=== PATIENT | female | born 1955 | race Caucasian/White ===

== ENCOUNTER 2016-05-07 16:37 | Emergency (ER) | payer BC ==
--- NOTE | 2016-05-07 16:55 | ED ---
General Adult HPI - General Chief complaint: Chest Pain Stated complaint: left arm numbness Source: patient, RN notes reviewed, old records reviewed Mode of arrival: ambulatory Limitations: no limitations - History of Present Illness Initial comments: This is a 7-year-old female yesterday with chest pain. Patient has anterior chest pain. Her chest radiating to left shoulder and left arm and jaw. She also was of shortness of breath. Patient has no recent fever cough or congestion, no history of heart attack, no history of hypotension or costovertebral diabetes nonsmoker. Patient states she is currently having this chest pain as well. - Related Data Home Medications Medication Instructions Recorded Confirmed Naproxen Sodium [Aleve] 220 mg PO BID PRN 06/03/15 05/07/16 Cholecalciferol (Vitamin D3) 10,000 unit PO DAILY 05/07/16 05/07/16 [Vitamin D3] Multivitamins, Thera [Multivitamin 1 tab PO DAILY 05/07/16 05/07/16 (formulary)] Allergies Allergy/AdvReac Type Severity Reaction Status Date / Time morphine AdvReac Severe Nausea & Verified 05/07/16 18:16 Vomiting Review of Systems ROS Statement: Those systems with pertinent positive or pertinent negative responses have been documented in the HPI. ROS Other: All systems not noted in ROS Statement are negative. 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, partial rt knee replacement, left achillies repaired and lengthened , moles removed, 4-15-16 rt achilles tendon repair Past Psychological History: No Psychological Hx Reported Smoking Status: Never smoker Past Alcohol Use History: Occasional Past Drug Use History: Marijuana Additional Drug Use History / Comment(s): last used 3 weeks ago - Past Family History Father Additional Family Medical History / Comment(s): melanoma Mother Additional Family Medical History / Comment(s): macular degeneration General Exam Limitations: no limitations General appearance: alert, in no apparent distress Head exam: Present: atraumatic, normocephalic, normal inspection Eye exam: Present: normal appearance, PERRL, EOMI. Absent: scleral icterus, conjunctival injection, periorbital swelling ENT exam: Present: normal exam, mucous membranes moist Neck exam: Present: normal inspection. Absent: tenderness, meningismus, lymphadenopathy Respiratory exam: Present: normal lung sounds bilaterally. Absent: respiratory distress, wheezes, rales, rhonchi, stridor Cardiovascular Exam: Present: regular rate, normal rhythm, normal heart sounds. Absent: systolic murmur, diastolic murmur, rubs, gallop, clicks GI/Abdominal exam: Present: soft, normal bowel sounds. Absent: distended, tenderness, guarding, rebound, rigid Extremities exam: Present: normal inspection, full ROM, normal capillary refill. Absent: tenderness, pedal edema, joint swelling, calf tenderness Back exam: Present: normal inspection Neurological exam: Present: alert, oriented X3, CN II-XII intact Psychiatric exam: Present: normal affect, normal mood Skin exam: Present: warm, dry, intact, normal color. Absent: rash Course Vital Signs 05/07/16 05/07/16 05/07/16 16:48 17:52 18:25 Temperature 98.0 F 97 F L Pulse Rate 82 82 74 Respiratory 16 20 20 Rate Blood Pressure 145/79 128/72 138/77 O2 Sat by Pulse 98 100 99 Oximetry - Reevaluation(s) Reevaluation #1: Patient states since arrival to emergency room she is without pain, patient has no chronic risk factors, patient cursive follow up with family doctor, does admit to being a daily drinker, concerned overage and duration of symptoms EKG Findings - EKG Comments: EKG Findings:: EKG shows normal sinus rhythm rate of 82, MS 1:30, QRS 80, QTC 464 Medical Decision Making - Medical Decision Making 61 female ear for evaluation of chest pain, more likely epigastric pain radiating upper back, burning pain worse after eating at times. Patient is well cardiac risk factors aside from age, patient concern for heart although does admit to being daily drinker, patient's again without pain in the emergency room, EKG and troponin are negative the patient can be discharged home - Lab Data Result diagrams: 05/07/16 17:20 05/07/16 17:20 Lab Results 05/07/16 05/07/16 05/07/16 Range/Units 17:20 17:20 17:20 WBC 7.1 (3.8-10.6) k/uL RBC 4.82 (3.80-5.40) m/uL Hgb 14.3 (11.4-16.0) gm/dL Hct 43.9 (34.0-46.0) % MCV 91.2 (80.0-100.0) fL MCH 29.6 (25.0-35.0) pg MCHC 32.5 (31.0-37.0) g/dL RDW 12.7 (11.5-15.5) % Plt Count 349 (150-450) k/uL Neutrophils % 58 % Lymphocytes % 31 % Monocytes % 6 % Eosinophils % 1 % Basophils % 1 % Neutrophils # 4.1 (1.3-7.7) k/uL Lymphocytes # 2.2 (1.0-4.8) k/uL Monocytes # 0.4 (0-1.0) k/uL Eosinophils # 0.1 (0-0.7) k/uL Basophils # 0.0 (0-0.2) k/uL PT (9.0-12.0) sec INR (<1.1) APTT (22.0-30.0) sec Sodium 143 (137-145) mmol/L Potassium 4.3 (3.5-5.1) mmol/L Chloride 106 (98-107) mmol/L Carbon Dioxide 26 (22-30) mmol/L Anion Gap 11 mmol/L BUN 13 (7-17) mg/dL Creatinine 0.70 (0.52-1.04) mg/dL Est GFR (MDRD) Af Amer >60 (>60 ml/min/1.73 sqM) Est GFR (MDRD) Non-Af >60 (>60 ml/min/1.73 sqM) Glucose 108 H (74-99) mg/dL Calcium 9.9 (8.4-10.2) mg/dL Magnesium 2.2 (1.6-2.3) mg/dL Total Bilirubin 0.7 (0.2-1.3) mg/dL AST 51 H (14-36) U/L ALT 81 H (9-52) U/L Alkaline Phosphatase 65 (38-126) U/L Total Creatine Kinase 62 (30-135) U/L CK-MB (CK-2) 0.4 (0.0-2.4) ng/mL CK-MB (CK-2) Rel Index 0.6 Troponin I <0.012 (0.000-0.034) ng/mL Total Protein 7.8 (6.3-8.2) g/dL Albumin 4.6 (3.5-5.0) g/dL Lipase 320 H (23-300) U/L Urine Color Urine Appearance (Clear) Urine pH (5.0-8.0) Ur Specific [place] (1.001-1.035) Urine Protein (Negative) Urine Glucose (UA) (Negative) Urine Ketones (Negative) Urine Blood (Negative) Urine Nitrite (Negative) Urine Bilirubin (Negative) Urine Urobilinogen (<2.0) mg/dL Ur Leukocyte Esterase (Negative) Urine RBC (0-5) /hpf Urine WBC (0-5) /hpf Ur Squamous Epith Cells (0-4) /hpf Urine Bacteria (None) /hpf Urine Mucus (None) /hpf 05/07/16 05/07/16 Range/Units 17:20 18:20 WBC (3.8-10.6) k/uL RBC (3.80-5.40) m/uL Hgb (11.4-16.0) gm/dL Hct (34.0-46.0) % MCV (80.0-100.0) fL MCH (25.0-35.0) pg MCHC (31.0-37.0) g/dL RDW (11.5-15.5) % Plt Count (150-450) k/uL Neutrophils % % Lymphocytes % % Monocytes % % Eosinophils % % Basophils % % Neutrophils # (1.3-7.7) k/uL Lymphocytes # (1.0-4.8) k/uL Monocytes # (0-1.0) k/uL Eosinophils # (0-0.7) k/uL Basophils # (0-0.2) k/uL PT 10.2 (9.0-12.0) sec INR 1.0 (<1.1) APTT 22.7 (22.0-30.0) sec Sodium (137-145) mmol/L Potassium (3.5-5.1) mmol/L Chloride (98-107) mmol/L Carbon Dioxide (22-30) mmol/L Anion Gap mmol/L BUN (7-17) mg/dL Creatinine (0.52-1.04) mg/dL Est GFR (MDRD) Af Amer (>60 ml/min/1.73 sqM) Est GFR (MDRD) Non-Af (>60 ml/min/1.73 sqM) Glucose (74-99) mg/dL Calcium (8.4-10.2) mg/dL Magnesium (1.6-2.3) mg/dL Total Bilirubin (0.2-1.3) mg/dL AST (14-36) U/L ALT (9-52) U/L Alkaline Phosphatase (38-126) U/L Total Creatine Kinase (30-135) U/L CK-MB (CK-2) (0.0-2.4) ng/mL CK-MB (CK-2) Rel Index Troponin I (0.000-0.034) ng/mL Total Protein (6.3-8.2) g/dL Albumin (3.5-5.0) g/dL Lipase (23-300) U/L Urine Color Yellow Urine Appearance Clear (Clear) Urine pH 5.5 (5.0-8.0) Ur Specific [place] 1.012 (1.001-1.035) Urine Protein Negative (Negative) Urine Glucose (UA) Negative (Negative) Urine Ketones Negative (Negative) Urine Blood Trace H (Negative) Urine Nitrite Negative (Negative) Urine Bilirubin Negative (Negative) Urine Urobilinogen <2.0 (<2.0) mg/dL Ur Leukocyte Esterase Negative (Negative) Urine RBC 1 (0-5) /hpf Urine WBC <1 (0-5) /hpf Ur Squamous Epith Cells 1 (0-4) /hpf Urine Bacteria Rare H (None) /hpf Urine Mucus Rare H (None) /hpf - Radiology Data Radiology results: report reviewed (Chest x-ray is negative for acute disease), image reviewed Disposition Clinical Impression: Acute pancreatitis Disposition: HOME SELF-CARE Condition: Good Instructions: Pancreatitis (ED) Referrals: Payam Durant DO [Primary Care Provider] - 1-2 days
[2016-05-07 17:25] LABS: Basophils % (A) 1 %; CH 30.1; CHCM 33.1; Eosinophils # (A) 0.1 k/uL (0-0.7); Eosinophils % (A) 1 %; HCT 43.9 % (34.0-46.0); HDW 2.35; HGB 14.3 gm/dL (11.4-16.0); Luc # (Auto) 0.25; Luc % (Auto) 4; Lymphocytes # (A) 2.2 k/uL (1.0-4.8); Lymphocytes % (A) 31 %; MCH 29.6 pg (25.0-35.0); MCHC 32.5 g/dL (31.0-37.0); MCV 91.2 fL (80.0-100.0); Mean Platelet Volume 6.4; Monocytes # (A) 0.4 k/uL (0-1.0); Monocytes % (A) 6 %; Neutrophils # (A) 4.1 k/uL (1.3-7.7); Neutrophils % (A) 58 %; RBC 4.82 m/uL (3.80-5.40); RDW 12.7 % (11.5-15.5); WBC 7.1 k/uL (3.8-10.6); WBC (Perox) 7.12
[2016-05-07 17:42] LABS: Partial Thromboplastin Time 22.7 sec (22.0-30.0); Prothrombin Time 10.2 sec (9.0-12.0)
[2016-05-07 17:43] LABS: Creatine Kinase 62 U/L (30-135)
[2016-05-07 17:45] LABS: ALT 81 U/L (9-52); AST 51 U/L (14-36); Alkaline Phosphatase 65 U/L (38-126); Anion Gap 11 mmol/L; Blood Urea Nitrogen 13 mg/dL (7-17); Calcium 9.9 mg/dL (8.4-10.2); Carbon Dioxide 26 mmol/L (22-30); Chloride 106 mmol/L (98-107); Glucose 108 mg/dL (74-99); Magnesium 2.2 mg/dL (1.6-2.3); Non-African American GFR(MDRD) >60 (>60 ml/min/1.73 sqM); Potassium 4.3 mmol/L (3.5-5.1); Sodium 143 mmol/L (137-145); Total Bilirubin 0.7 mg/dL (0.2-1.3); Total Protein 7.8 g/dL (6.3-8.2)
[2016-05-07 17:56] LABS: Creatine Kinase MB 0.4 ng/mL (0.0-2.4); Troponin I <0.012 ng/mL (0.000-0.034)
--- NOTE | 2016-05-07 18:25 | XR ---
EXAMINATION TYPE: XR chest 2V DATE OF EXAM: 05/07/2016 5:35 PM COMPARISON: Prior chest x-ray November HISTORY: Chest pain TECHNIQUE: Frontal and lateral views of the chest are obtained. FINDINGS: There is no focal air space opacity, pleural effusion, or pneumothorax seen. The cardiac silhouette size is within normal limits. There are overlying cardiac leads. The osseous structures are intact. IMPRESSION: No acute cardiopulmonary process.
[2016-05-07 18:26] VITALS: BP 138/77; PULSE 74; RESP 20; TEMP 97
[2016-05-07 18:50] LABS: Appearance,Urine Clear (Clear); Bacteria,Urine Rare /hpf; Bilirubin,Urine Negative (Negative); Glucose,Urine (UA) Negative (Negative); Ketones,Urine Negative (Negative); Leukocyte Esterase,Urine Negative (Negative); Mucus,Urine Rare /hpf; Nitrite,Urine Negative (Negative); PH, Urine 5.5 (5.0-8.0); Particle Count 1225; Protein,Urine Negative (Negative); RBC,Urine 1 /hpf (0-5); Specific Gravity,Urine 1.012 (1.001-1.035); Squamous Epithelial Cell,Urine 1 /hpf (0-4); UA Billing (MACRO vs. MICRO) MICRO; Urobilinogen,Urine <2.0 mg/dL (<2.0); WBC,Urine <1 /hpf (0-5)
== END 2016-05-07 18:38 | disposition home or self-care (01) ==
LOC: EC 16:37
DX: K85.90 Acute pancreatitis without necrosis or infection, unspecified (principal); Z79.899 Other long term (current) drug therapy; Z88.5 Allergy status to narcotic agent
CPT/HCPCS: 36415; 71020; 80053; 81001; 82550; 82553; 83690; 83735; 84484; 85025; 85610; 85730; 87086; 93005; 99285

== ENCOUNTER 2016-05-10 17:47 | Emergency (ER) | payer BC ==
[2016-05-10] MEDS ORDERED: SODIUM CHLORIDE 0.9% 1,000 ML IV STA (18:31)
--- NOTE | 2016-05-10 18:35 | ED ---
Abdominal Pain HPI - General Chief Complaint: Abdominal Pain Stated Complaint: abd pain Time Seen by Provider: 05/10/16 18:08 Source: patient, RN notes reviewed Mode of arrival: wheelchair Limitations: no limitations - History of Present Illness Initial Comments: Patient is a 61-year-old female presents to the emergency room for evaluation of left upper quadrant pain. Patient states she was here Monday for the same complaint. Patient states she was diagnosed with mild pancreatitis. Patient states she followed up with her primary care provider and ultrasound was ordered. Patient states her ultrasound is scheduled for . Patient states pain is not getting any better. Patient states she is having constant pain in her left upper quadrant. Patient states the pain radiates to her back. Patient states pain was worse while making a bowel movement. Patient states she began having chest pain while having a bowel movement. Patient states she is feeling nauseous. Patient denies any vomiting. Patient also states she's been having frequency in urination. Patient also states that having burning while urinating. Patient states the frequency has increased since Monday. Patient denies history of kidney stones. Patient's denies blood in urine. Patient states she has a history of appendectomy and tubal ligation. Patient denies any other abdominal surgeries. Patient denies fevers, chills, weakness, headache, dizziness, shortness of breath. Patient states she had a colonoscopy done about 4-5 years ago with no abnormal findings. - Related Data Home Medications Medication Instructions Recorded Confirmed Naproxen Sodium [Aleve] 220 mg PO BID PRN 06/03/15 05/10/16 Cholecalciferol (Vitamin D3) 10,000 unit PO DAILY 05/07/16 05/10/16 [Vitamin D3] Multivitamins, Thera [Multivitamin 1 tab PO DAILY 05/07/16 05/10/16 (formulary)] Previous Rx's Medication Instructions Recorded Dicyclomine [Bentyl] 10 mg PO TID PRN #12 capsule 05/10/16 Famotidine [Pepcid] 20 mg PO DAILY PRN #10 tablet 05/10/16 Ondansetron Odt [Zofran Odt] 4 mg PO Q8HR PRN #12 tab 05/10/16 Allergies Allergy/AdvReac Type Severity Reaction Status Date / Time morphine AdvReac Severe Nausea & Verified 05/10/16 19:13 Vomiting Review of Systems ROS Statement: Those systems with pertinent positive or pertinent negative responses have been documented in the HPI. ROS Other: All systems not noted in ROS Statement are negative. 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 Limitations: no limitations General appearance: alert, in no apparent distress Head exam: Present: atraumatic, normocephalic, normal inspection Eye exam: Present: normal appearance ENT exam: Present: normal exam Neck exam: Present: normal inspection Respiratory exam: Present: normal lung sounds bilaterally. Absent: respiratory distress Cardiovascular Exam: Present: regular rate, normal rhythm, normal heart sounds GI/Abdominal exam: Present: soft, tenderness (LUQ), normal bowel sounds. Absent : distended, guarding, rebound, rigid Extremities exam: Present: normal inspection Back exam: Present: normal inspection Neurological exam: Present: alert, oriented X3, CN II-XII intact, normal gait Psychiatric exam: Present: normal affect, normal mood Skin exam: Present: warm, dry, intact, normal color. Absent: rash Course Vital Signs 05/10/16 05/10/16 05/10/16 17:56 19:24 20:58 Temperature 98.6 F 98.3 F 97.9 F Pulse Rate 107 H 91 76 Respiratory 20 18 18 Rate Blood Pressure 162/70 142/85 138/66 O2 Sat by Pulse 97 98 97 Oximetry 05/10/16 22:30 Temperature 97.8 F Pulse Rate 66 Respiratory 18 Rate Blood Pressure 130/70 O2 Sat by Pulse 99 Oximetry Medical Decision Making - Medical Decision Making Patient is 61-year-old female presents to the emergency room for evaluation of left upper quadrant pain. Labs show findings. No signs of pancreatitis noted. Abdominal ultrasound showed no acute findings. CT abdomen/pelvis: Mild fatty infiltration of the liver. Small umbilical hernia. No sign of acute abdomen and pelvis. Results discussed with patient. Patient states she is feeling better after medications given. Will send patient home with Dameon and advised her to follow-up with GI specialist for further evaluation. Patient states he understands everything that was discussed with her. Return parameters discussed. Case discussed with Dr. Sampson. - Lab Data Result diagrams: 05/10/16 18:56 05/10/16 18:56 Lab Results 05/10/16 05/10/16 05/10/16 Range/Units 18:56 18:56 18:56 WBC 10.1 (3.8-10.6) k/uL RBC 5.11 (3.80-5.40) m/uL Hgb 14.9 (11.4-16.0) gm/dL Hct 45.4 (34.0-46.0) % MCV 88.7 D (80.0-100.0) fL MCH 29.2 (25.0-35.0) pg MCHC 32.9 (31.0-37.0) g/dL RDW 12.6 (11.5-15.5) % Plt Count 414 (150-450) k/uL Neutrophils % 66 % Lymphocytes % 26 % Monocytes % 5 % Eosinophils % 0 % Basophils % 1 % Neutrophils # 6.6 (1.3-7.7) k/uL Lymphocytes # 2.7 (1.0-4.8) k/uL Monocytes # 0.5 (0-1.0) k/uL Eosinophils # 0.0 (0-0.7) k/uL Basophils # 0.1 (0-0.2) k/uL PT (9.0-12.0) sec INR (<1.1) APTT (22.0-30.0) sec Sodium 145 (137-145) mmol/L Potassium 4.3 (3.5-5.1) mmol/L Chloride 104 (98-107) mmol/L Carbon Dioxide 25 (22-30) mmol/L Anion Gap 16 mmol/L BUN 10 (7-17) mg/dL Creatinine 0.70 (0.52-1.04) mg/dL Est GFR (MDRD) Af Amer >60 (>60 ml/min/1.73 sqM) Est GFR (MDRD) Non-Af >60 (>60 ml/min/1.73 sqM) Glucose 114 H (74-99) mg/dL Calcium 10.9 H (8.4-10.2) mg/dL Magnesium 1.7 (1.6-2.3) mg/dL Total Bilirubin 0.8 (0.2-1.3) mg/dL AST 38 H (14-36) U/L ALT 71 H (9-52) U/L Alkaline Phosphatase 75 (38-126) U/L Total Creatine Kinase 38 (30-135) U/L CK-MB (CK-2) <0.2 (0.0-2.4) ng/mL CK-MB (CK-2) Rel Index Troponin I <0.012 (0.000-0.034) ng/mL Total Protein 8.1 (6.3-8.2) g/dL Albumin 4.8 (3.5-5.0) g/dL Amylase 56 (30-110) U/L Lipase 211 (23-300) U/L Urine Color Urine Appearance (Clear) Urine pH (5.0-8.0) Ur Specific [place] (1.001-1.035) Urine Protein (Negative) Urine Glucose (UA) (Negative) Urine Ketones (Negative) Urine Blood (Negative) Urine Nitrite (Negative) Urine Bilirubin (Negative) Urine Urobilinogen (<2.0) mg/dL Ur Leukocyte Esterase (Negative) Urine RBC (0-5) /hpf Urine WBC (0-5) /hpf Ur Squamous Epith Cells (0-4) /hpf Amorphous Sediment (None) /hpf Urine Bacteria (None) /hpf Urine Mucus (None) /hpf 05/10/16 05/10/16 Range/Units 18:56 19:20 WBC (3.8-10.6) k/uL RBC (3.80-5.40) m/uL Hgb (11.4-16.0) gm/dL Hct (34.0-46.0) % MCV (80.0-100.0) fL MCH (25.0-35.0) pg MCHC (31.0-37.0) g/dL RDW (11.5-15.5) % Plt Count (150-450) k/uL Neutrophils % % Lymphocytes % % Monocytes % % Eosinophils % % Basophils % % Neutrophils # (1.3-7.7) k/uL Lymphocytes # (1.0-4.8) k/uL Monocytes # (0-1.0) k/uL Eosinophils # (0-0.7) k/uL Basophils # (0-0.2) k/uL PT 10.5 (9.0-12.0) sec INR 1.0 (<1.1) APTT 22.6 (22.0-30.0) sec Sodium (137-145) mmol/L Potassium (3.5-5.1) mmol/L Chloride (98-107) mmol/L Carbon Dioxide (22-30) mmol/L Anion Gap mmol/L BUN (7-17) mg/dL Creatinine (0.52-1.04) mg/dL Est GFR (MDRD) Af Amer (>60 ml/min/1.73 sqM) Est GFR (MDRD) Non-Af (>60 ml/min/1.73 sqM) Glucose (74-99) mg/dL Calcium (8.4-10.2) mg/dL Magnesium (1.6-2.3) mg/dL Total Bilirubin (0.2-1.3) mg/dL AST (14-36) U/L ALT (9-52) U/L Alkaline Phosphatase (38-126) U/L Total Creatine Kinase (30-135) U/L CK-MB (CK-2) (0.0-2.4) ng/mL CK-MB (CK-2) Rel Index Troponin I (0.000-0.034) ng/mL Total Protein (6.3-8.2) g/dL Albumin (3.5-5.0) g/dL Amylase (30-110) U/L Lipase (23-300) U/L Urine Color Yellow Urine Appearance Cloudy H (Clear) Urine pH 6.0 (5.0-8.0) Ur Specific [place] 1.014 (1.001-1.035) Urine Protein Negative (Negative) Urine Glucose (UA) Negative (Negative) Urine Ketones Negative (Negative) Urine Blood Trace H (Negative) Urine Nitrite Negative (Negative) Urine Bilirubin Negative (Negative) Urine Urobilinogen <2.0 (<2.0) mg/dL Ur Leukocyte Esterase Negative (Negative) Urine RBC 3 (0-5) /hpf Urine WBC 3 (0-5) /hpf Ur Squamous Epith Cells 3 (0-4) /hpf Amorphous Sediment Rare H (None) /hpf Urine Bacteria Rare H (None) /hpf Urine Mucus Rare H (None) /hpf 05/11/16 00:34 Normal sinus rhythm, ventricular 88 bpm, KS interval 122 ms, QRS duration 82 ms , QT/QTC 376/454 ms - Radiology Data Radiology results: report reviewed, image reviewed Disposition Clinical Impression: Abdominal pain Disposition: HOME SELF-CARE Condition: Good Instructions: Abdominal Pain (ED) Additional Instructions: Please follow up with GI specialist for further evaluation. Take medications as needed. If any new symptom arises or symptoms worsen, return to ER as soon as possible. Prescriptions: Ondansetron Odt [Zofran Odt] 4 mg PO Q8HR PRN #12 tab PRN Reason: Nausea Dicyclomine [Bentyl] 10 mg PO TID PRN #12 capsule PRN Reason: Pain Famotidine [Pepcid] 20 mg PO DAILY PRN #10 tablet PRN Reason: Pain Referrals: Payam Durant DO [Primary Care Provider] - 1-2 days Andrea Milton MD [STAFF PHYSICIAN] - 1-2 days Time of Disposition: :17
[2016-05-10 19:22] LABS: ALT 71 U/L (9-52); AST 38 U/L (14-36); Alkaline Phosphatase 75 U/L (38-126); Amylase 56 U/L (30-110); Anion Gap 16 mmol/L; Blood Urea Nitrogen 10 mg/dL (7-17); Calcium 10.9 mg/dL (8.4-10.2); Carbon Dioxide 25 mmol/L (22-30); Chloride 104 mmol/L (98-107); Glucose 114 mg/dL (74-99); Magnesium 1.7 mg/dL (1.6-2.3); Non-African American GFR(MDRD) >60 (>60 ml/min/1.73 sqM); Potassium 4.3 mmol/L (3.5-5.1); Sodium 145 mmol/L (137-145); Total Bilirubin 0.8 mg/dL (0.2-1.3); Total Protein 8.1 g/dL (6.3-8.2)
[2016-05-10 19:25] VITALS: RESP 18
[2016-05-10 19:25] LABS: Partial Thromboplastin Time 22.6 sec (22.0-30.0); Prothrombin Time 10.5 sec (9.0-12.0)
[2016-05-10] MEDS ORDERED: ONDANSETRON 4 MG/2 ML VIAL IVP STA (19:26)
[2016-05-10] MEDS ORDERED: KETOROLAC 30 MG/ML 1 ML VIAL IVP STA (19:26)
[2016-05-10 19:30] LABS: Basophils # (A) 0.1 k/uL (0-0.2); Basophils % (A) 1 %; CH 30.2; CHCM 34.1; Eosinophils % (A) 0 %; HCT 45.4 % (34.0-46.0); HGB 14.9 gm/dL (11.4-16.0); Luc # (Auto) 0.23; Luc % (Auto) 2; Lymphocytes # (A) 2.7 k/uL (1.0-4.8); Lymphocytes % (A) 26 %; MCH 29.2 pg (25.0-35.0); MCHC 32.9 g/dL (31.0-37.0); Mean Platelet Volume 6.4; Monocytes # (A) 0.5 k/uL (0-1.0); Monocytes % (A) 5 %; Neutrophils # (A) 6.6 k/uL (1.3-7.7); Neutrophils % (A) 66 %; RBC 5.11 m/uL (3.80-5.40); RDW 12.6 % (11.5-15.5); WBC 10.1 k/uL (3.8-10.6); WBC (Perox) 10.06
[2016-05-10 19:32] LABS: MCV 88.7 fL (80.0-100.0)
[2016-05-10 19:41] LABS: Creatine Kinase 38 U/L (30-135)
[2016-05-10 19:43] LABS: Amorphous Sediment,Urine Rare /hpf; Appearance,Urine Cloudy (Clear); Bacteria,Urine Rare /hpf; Bilirubin,Urine Negative (Negative); Glucose,Urine (UA) Negative (Negative); Ketones,Urine Negative (Negative); Leukocyte Esterase,Urine Negative (Negative); Mucus,Urine Rare /hpf; Nitrite,Urine Negative (Negative); Particle Count 2175; Protein,Urine Negative (Negative); RBC,Urine 3 /hpf (0-5); Specific Gravity,Urine 1.014 (1.001-1.035); Squamous Epithelial Cell,Urine 3 /hpf (0-4); UA Billing (MACRO vs. MICRO) MICRO; Urobilinogen,Urine <2.0 mg/dL (<2.0); WBC,Urine 3 /hpf (0-5)
[2016-05-10 19:54] LABS: Creatine Kinase MB <0.2 ng/mL (0.0-2.4); Troponin I <0.012 ng/mL (0.000-0.034)
--- NOTE | 2016-05-10 20:46 | US ---
EXAMINATION TYPE: US abdomen complete DATE OF EXAM: 05/10/2016 8:32 PM COMPARISON: NONE CLINICAL HISTORY: Pain. Patient was diagnosed with pancreatitis on 05/07/2016. Worsening abdominal nette n since then. EXAM MEASUREMENTS: Liver Length: 16.0 cm Gallbladder Wall: 0.2 cm CBD: 0.5 cm Spleen: 8.9 cm Right Kidney: 9.9 x 4.2 x 3.6 cm Left Kidney: 9.7 x 4.7 x 4.0 cm TECHNOLOGIST IMPRESSION: Pancreas: Tail obscured by overlying bowel gas. Duct visualized measuring 0.2 cm Liver: Difficult/limited visualization due to overlying bowel gas. Echogenic, heterogeneous parenchym a. Gallbladder: wnl Evidence for sonographic Kaufman's sign: No CBD: wnl Spleen: wnl Right Kidney: No hydronephrosis or masses seen Left Kidney: No hydronephrosis or masses seen Upper IVC: wnl Abd Aorta: wnl IMPRESSION: No gallstones or dilated ducts. No specific sign of pancreatitis.
[2016-05-10] MEDS ORDERED: RX INFO: IV CONTRAST WAS GIVEN 1 EACH MISC MISCELLANE PRN (20:52)
--- NOTE | 2016-05-10 21:38 | CT ---
EXAMINATION TYPE: CT abdomen pelvis w con DATE OF EXAM: 05/10/2016 9:26 PM COMPARISON: NONE HISTORY: Generalized abdominal pain and bloating x [address] DLP: 936.10 mGycm Automated exposure control for dose reduction was used. TECHNIQUE: Helical acquisition of images was performed from the lung bases through the pelvis. CONTRAST: Performed without Oral Contrast and with IV Contrast, patient injected with 100 mL of Omnipaque 300. FINDINGS: The lung bases are clear. There is no pleural effusion. Liver spleen pancreas gallbladder appear normal. Bile ducts are not dilated. There is no adrenal mass . Kidneys have normal size and contour. There is no hydronephrosis. There is no retroperitoneal adeno suleman. There is no ascites. There are clips apparently from appendectomy. I see no intestinal wall thickening. There are no dilated loops. Bladder distends smoothly. There is no sign of a pelvic mass. There is an umbilical hernia contains omental fat. There is mild decreased density in the liver. There is no evidence of a bony destructive process. IMPRESSION: MILD FATTY INFILTRATION OF THE LIVER. SMALL UMBILICAL HERNIA. NO SIGN OF ACUTE ABDOMEN AND PELVIS.
[2016-05-10] MEDS ORDERED: FAMOTIDINE 20 MG TAB PO STA (22:18)
[2016-05-10] MEDS ORDERED: ONDANSETRON ODT 4 MG TAB PO STA (22:18)
[2016-05-10] MEDS ORDERED: DICYCLOMINE 10 MG CAP PO STA (22:18)
[2016-05-10 22:31] VITALS: BP 130/70; PULSE 66; TEMP 97.8
== END 2016-05-10 22:38 | disposition home or self-care (01) ==
LOC: EC 17:47
DX: K42.9 Umbilical hernia without obstruction or gangrene (principal); R10.12 Left upper quadrant pain; K76.0 Fatty (change of) liver, not elsewhere classified; M54.9 Dorsalgia, unspecified; R11.0 Nausea; Z79.899 Other long term (current) drug therapy; Z88.5 Allergy status to narcotic agent
CPT/HCPCS: 36415; 93005; 80053; 82150; 82550; 82553; 83690; 83735; 84484; 85025; 85610; 85730; 81001; 76700; 74177; 99284; 96374; 96375; 96361 ×2; J2405; J1885; Q9967

== ENCOUNTER 2016-05-15 21:00 | Observation (INO) | payer BC ==
[2016-05-15] MEDS ORDERED: SODIUM CHLORIDE 0.9% 500 ML IV STA (22:20)
[2016-05-15] MEDS ORDERED: SODIUM CHLORIDE 0.9% 1,000 ML IV STA (22:20)
--- NOTE | 2016-05-15 22:34 | ED ---
General Adult HPI - General Chief complaint: Shortness of Breath Stated complaint: Vomiting Time Seen by Provider: 05/15/16 22:19 Source: patient, RN notes reviewed, old records reviewed Mode of arrival: ambulatory Limitations: no limitations - History of Present Illness Initial comments: This is a 7-year-old female here for evaluation by dates patient presents for evaluation of dyspnea and shortness of breath. History of pancreatitis, history of COPD. Patient does admit to smoking, no pain no chest pain no bowel pain. No leg pain, no nausea vomiting or diarrhea. No recent fevers, no cough or congestion - Related Data Home Medications Medication Instructions Recorded Confirmed Naproxen Sodium [Aleve] 220 mg PO BID PRN 06/03/15 05/15/16 Cholecalciferol (Vitamin D3) 10,000 unit PO DAILY 05/07/16 05/15/16 [Vitamin D3] Multivitamins, Thera [Multivitamin 1 tab PO DAILY 05/07/16 05/15/16 (formulary)] Previous Rx's Medication Instructions Recorded Dicyclomine [Bentyl] 10 mg PO TID PRN #12 capsule 05/10/16 Famotidine [Pepcid] 20 mg PO DAILY PRN #10 tablet 05/10/16 Ondansetron Odt [Zofran Odt] 4 mg PO Q8HR PRN #12 tab 05/10/16 Allergies Allergy/AdvReac Type Severity Reaction Status Date / Time morphine AdvReac Severe Nausea & Verified 05/15/16 21:06 Vomiting Review of Systems ROS Statement: Those systems with pertinent positive or pertinent negative responses have been documented in the HPI. ROS Other: All systems not noted in ROS Statement are negative. Past Medical History Past Medical History: No Reported History Additional Past Medical History / Comment(s): pancreatitis History of Any Multi-Drug Resistant Organisms: None Reported Past Surgical History: Orthopedic Surgery Additional Past Surgical History / Comment(s): pre-cancerous melanoma removed from rt leg, partial rt knee replacement, left achillies repaired and lengthened , moles removed, 4--16 rt achilles tendon repair Past Psychological History: No Psychological Hx Reported Smoking Status: Former smoker Past Alcohol Use History: Occasional Past Drug Use History: Marijuana Additional Drug Use History / Comment(s): last used 3 weeks ago - Past Family History Father Additional Family Medical History / Comment(s): melanoma Mother Additional Family Medical History / Comment(s): macular degeneration General Exam Limitations: no limitations Course Vital Signs 05/15/16 05/15/16 21:00 23:57 Temperature 99.3 F 97.5 F L Pulse Rate 88 84 Respiratory 16 18 Rate Blood Pressure 138/82 139/80 O2 Sat by Pulse 100 96 Oximetry - Reevaluation(s) Reevaluation #1: 05/16/16 00:25 In considering continuing to have pain, weakness, nausea vomiting Medical Decision Making - Medical Decision Making 61 female here for evaluation of continued abdominal pain nausea vomiting weakness, chest pain. Patient be admitted for pain control and surgical evaluation - Lab Data Result diagrams: 05/15/16 22:30 05/15/16 22:30 Lab Results 05/15/16 05/15/16 05/15/16 Range/Units 22:30 22:30 22:30 WBC 6.8 (3.8-10.6) k/uL RBC 5.04 (3.80-5.40) m/uL Hgb 15.1 (11.4-16.0) gm/dL Hct 45.0 (34.0-46.0) % MCV 89.3 (80.0-100.0) fL MCH 30.0 (25.0-35.0) pg MCHC 33.6 (31.0-37.0) g/dL RDW 12.6 (11.5-15.5) % Plt Count 340 (150-450) k/uL Neutrophils % 64 % Lymphocytes % 26 % Monocytes % 7 % Eosinophils % 1 % Basophils % 1 % Neutrophils # 4.3 (1.3-7.7) k/uL Lymphocytes # 1.7 (1.0-4.8) k/uL Monocytes # 0.4 (0-1.0) k/uL Eosinophils # 0.1 (0-0.7) k/uL Basophils # 0.1 (0-0.2) k/uL PT (9.0-12.0) sec INR (<1.1) APTT (22.0-30.0) sec D-Dimer (<0.60) mg/L FEU Sodium 145 (137-145) mmol/L Potassium 4.5 (3.5-5.1) mmol/L Chloride 106 (98-107) mmol/L Carbon Dioxide 24 (22-30) mmol/L Anion Gap 15 mmol/L BUN 10 (7-17) mg/dL Creatinine 0.80 (0.52-1.04) mg/dL Est GFR (MDRD) Af Amer >60 (>60 ml/min/1.73 sqM) Est GFR (MDRD) Non-Af >60 (>60 ml/min/1.73 sqM) Glucose 96 (74-99) mg/dL Plasma Lactic Acid Bunny (0.7-2.0) mmol/L Calcium 10.8 H (8.4-10.2) mg/dL Total Bilirubin 0.8 (0.2-1.3) mg/dL AST 55 H (14-36) U/L ALT 79 H (9-52) U/L Alkaline Phosphatase 69 (38-126) U/L Total Creatine Kinase 34 (30-135) U/L CK-MB (CK-2) <0.2 (0.0-2.4) ng/mL CK-MB (CK-2) Rel Index Troponin I <0.012 (0.000-0.034) ng/mL Total Protein 7.5 (6.3-8.2) g/dL Albumin 4.7 (3.5-5.0) g/dL Amylase 58 (30-110) U/L Lipase 197 (23-300) U/L 05/15/16 05/15/16 Range/Units 22:30 22:30 WBC (3.8-10.6) k/uL RBC (3.80-5.40) m/uL Hgb (11.4-16.0) gm/dL Hct (34.0-46.0) % MCV (80.0-100.0) fL MCH (25.0-35.0) pg MCHC (31.0-37.0) g/dL RDW (11.5-15.5) % Plt Count (150-450) k/uL Neutrophils % % Lymphocytes % % Monocytes % % Eosinophils % % Basophils % % Neutrophils # (1.3-7.7) k/uL Lymphocytes # (1.0-4.8) k/uL Monocytes # (0-1.0) k/uL Eosinophils # (0-0.7) k/uL Basophils # (0-0.2) k/uL PT 10.3 (9.0-12.0) sec INR 1.0 (<1.1) APTT 22.0 (22.0-30.0) sec D-Dimer 0.23 (<0.60) mg/L FEU Sodium (137-145) mmol/L Potassium (3.5-5.1) mmol/L Chloride (98-107) mmol/L Carbon Dioxide (22-30) mmol/L Anion Gap mmol/L BUN (7-17) mg/dL Creatinine (0.52-1.04) mg/dL Est GFR (MDRD) Af Amer (>60 ml/min/1.73 sqM) Est GFR (MDRD) Non-Af (>60 ml/min/1.73 sqM) Glucose (74-99) mg/dL Plasma Lactic Acid Bunny 1.5 (0.7-2.0) mmol/L Calcium (8.4-10.2) mg/dL Total Bilirubin (0.2-1.3) mg/dL AST (14-36) U/L ALT (9-52) U/L Alkaline Phosphatase (38-126) U/L Total Creatine Kinase (30-135) U/L CK-MB (CK-2) (0.0-2.4) ng/mL CK-MB (CK-2) Rel Index Troponin I (0.000-0.034) ng/mL Total Protein (6.3-8.2) g/dL Albumin (3.5-5.0) g/dL Amylase (30-110) U/L Lipase (23-300) U/L - Radiology Data Radiology results: report reviewed (CXR is negative for acute disease), image reviewed Disposition Clinical Impression: Abdominal pain, Chest pain Disposition: ADMITTED IP TO THIS [facility] Condition: Good Referrals: Payam Durant DO [Primary Care Provider] - 1-2 days
[2016-05-15 22:49] LABS: Basophils # (A) 0.1 k/uL (0-0.2); Basophils % (A) 1 %; CH 30.4; CHCM 34.2; Eosinophils # (A) 0.1 k/uL (0-0.7); Eosinophils % (A) 1 %; HDW 2.46; HGB 15.1 gm/dL (11.4-16.0); Luc # (Auto) 0.19; Luc % (Auto) 3; Lymphocytes # (A) 1.7 k/uL (1.0-4.8); Lymphocytes % (A) 26 %; MCHC 33.6 g/dL (31.0-37.0); MCV 89.3 fL (80.0-100.0); Mean Platelet Volume 7.1; Monocytes # (A) 0.4 k/uL (0-1.0); Monocytes % (A) 7 %; Neutrophils # (A) 4.3 k/uL (1.3-7.7); Neutrophils % (A) 64 %; RBC 5.04 m/uL (3.80-5.40); RDW 12.6 % (11.5-15.5); WBC 6.8 k/uL (3.8-10.6); WBC (Perox) 6.84
[2016-05-15] MEDS ORDERED: KETOROLAC 30 MG/ML 1 ML VIAL IVP STA (23:06)
[2016-05-15] MEDS ORDERED: HYDROmorphone 1 MG/ML 1 ML SYRINGE IVP STA (23:06)
[2016-05-15] MEDS ORDERED: DIAZEPAM 5 MG/ML 2 ML SYRINGE IVP STA (23:06)
[2016-05-15 23:08] LABS: ALT 79 U/L (9-52); AST 55 U/L (14-36); Alkaline Phosphatase 69 U/L (38-126); Amylase 58 U/L (30-110); Anion Gap 15 mmol/L; Blood Urea Nitrogen 10 mg/dL (7-17); Calcium 10.8 mg/dL (8.4-10.2); Carbon Dioxide 24 mmol/L (22-30); Chloride 106 mmol/L (98-107); Glucose 96 mg/dL (74-99); Non-African American GFR(MDRD) >60 (>60 ml/min/1.73 sqM); Potassium 4.5 mmol/L (3.5-5.1); Sodium 145 mmol/L (137-145); Total Bilirubin 0.8 mg/dL (0.2-1.3); Total Protein 7.5 g/dL (6.3-8.2)
[2016-05-15 23:12] LABS: Prothrombin Time 10.3 sec (9.0-12.0)
[2016-05-15] MEDS ORDERED: ONDANSETRON 4 MG/2 ML VIAL IVP STA (23:12)
[2016-05-15 23:26] LABS: Creatine Kinase 34 U/L (30-135)
[2016-05-15 23:40] LABS: Creatine Kinase MB <0.2 ng/mL (0.0-2.4); Troponin I <0.012 ng/mL (0.000-0.034)
[2016-05-16] MEDS ORDERED: NITROGLYCERIN SL TABS 0.4 MG TAB SUBLINGUAL PRN (00:21)
[2016-05-16] MEDS ORDERED: ASPIRIN 81 MG CHEW PO STA (00:21)
--- NOTE | 2016-05-16 01:12 | XR ---
EXAM: XR Chest, 2 Views. CLINICAL HISTORY: Reason: Pain TECHNIQUE: Frontal and lateral views of the chest. COMPARISON: 05/07/16 FINDINGS: Lungs: Lungs are stable without new focal infiltrate. Pleural space: Unremarkable. No pneumothorax. Heart: The heart size and the mediastinal contours are stable. Mediastinum: See above. Bones/joints: The bones are stable including mild degenerative changes without acute displaced fracture. IMPRESSION: No significant change. No new acute intrathoracic abnormality is seen.
[2016-05-16] MEDS: ONDANSETRON 4 MG/2 ML VIAL IVP PRN ×3 (02:31→19:13)
[2016-05-16] MEDS: SODIUM CHLORIDE 0.9% 1,000 ML IV SCH ×2 (02:33→11:40)
[2016-05-16] MEDS ORDERED: HYDROmorphone 1 MG/ML 1 ML SYRINGE IVP STA ×2 (02:39→02:41)
[2016-05-16 06:25] LABS: Creatine Kinase 29 U/L (30-135)
[2016-05-16 06:37] LABS: Creatine Kinase MB <0.2 ng/mL (0.0-2.4); Troponin I <0.012 ng/mL (0.000-0.034)
[2016-05-16] MEDS: HYDROmorphone 1 MG/ML 1 ML SYRINGE IVP PRN ×2 (10:33→19:59)
[2016-05-16 11:33] LABS: Creatine Kinase 35 U/L (30-135)
[2016-05-16] MEDS: ENOXAPARIN 40 MG/0.4 ML SYRINGE SQ SCH (11:39)
[2016-05-16 11:44] LABS: Creatine Kinase MB <0.2 ng/mL (0.0-2.4); Troponin I <0.012 ng/mL (0.000-0.034)
--- NOTE | 2016-05-16 15:56 | P.GSCN ---
History of Present Illness Consult date: 05/16/16 Reason for Consult: abdominal pain, nausea /vomiting History of present illness: the patient is a 61-year-old female who had a fairly sudden onset of chest discomfort about a week or 2 ago. When the pain gets bad she gets anxious and has anxiety attacks. She's been in the emergency department 3 times. Last night she was admitted. One of the visitsshe was told she had pancreatitis. She's never had pancreatitis in the past. She had been on had a few drinks prior to that visit. She had also tried doterra essential oils. But stopped those 3 weeks ago. No history of ulcer disease. She had a normal colonoscopy about 4 or 5 years ago. No family history of GI malignancy or inflammatory bowel disease. No family history of gallbladder disease or celiac sprue. She has had some intermittent diarrhea up to 3 times a day. It's been a little soft but not particularly loose. No recent antibiotic use. No jaundice tea- colored urine or acholic stools. the patient stated she was just started on antibiotics and pelvic infection. This was after her other symptoms started however. Review of Systems All systems: negative Past Medical History Past Medical History: No Reported History Additional Past Medical History / Comment(s): Pt denies pancreatitis, recent basal cell skin cancer removed from right side base of neck and chest, arthritis bilateral knees. History of Any Multi-Drug Resistant Organisms: None Reported Past Surgical History: Appendectomy, Breast Surgery, Orthopedic Surgery, Tubal Ligation Additional Past Surgical History / Comment(s): Recent basal cell skin cancer removed from right side base of neck and chest, pre-cancerous melanoma removed from rt leg, mode removals, R knee arthroscopy, unicompartmental rt knee replacement, left achillies repaired and lengthened, 4-16 rt achilles tendon repair, colonoscopy, R breast bx-benign. Past Anesthesia/Blood Transfusion Reactions: Postoperative Nausea & Vomiting ( PONV) Past Psychological History: No Psychological Hx Reported Additional Psychological History / Comment(s): Pt resides with her spouse. She is independent. Smoking Status: Former smoker Past Alcohol Use History: Occasional Additional Past Alcohol Use History / Comment(s): Pt started smoking in 1981 and quit in 2010. Past Drug Use History: Marijuana Additional Drug Use History / Comment(s): Pt states she smokes marijuana on occasion for knee pain. - Past Family History Father Family Medical History: Cancer Additional Family Medical History / Comment(s): Father from melanoma Mother Family Medical History: Congestive Heart Failure (CHF), Rheumatoid Arthritis (RA ) Additional Family Medical History / Comment(s): macular degeneration Brother(s) Family Medical History: Cancer Additional Family Medical History / Comment(s): Brother of melanoma at the age of 46yrs. Medications and Allergies Home Medications Medication Instructions Recorded Confirmed Type Naproxen Sodium [Aleve] 220 mg PO BID PRN 06/03/15 05/16/16 History Cholecalciferol (Vitamin D3) 10,000 unit PO DAILY 05/07/16 05/16/16 History [Vitamin D3] Multivitamins, Thera [Multivitamin 1 tab PO DAILY 05/07/16 05/16/16 History (formulary)] Docusate [Colace] 100 mg PO DAILY PRN 05/16/16 05/16/16 History HYDROcodone/APAP 5-325MG [Joy 1 tab PO DAILY PRN 05/16/16 05/16/16 History 5-325] metroNIDAZOLE [Flagyl] 500 mg PO BID 05/16/16 05/16/16 History Allergies Allergy/AdvReac Type Severity Reaction Status Date / Time morphine AdvReac Severe Nausea & Verified 05/16/16 07:32 Vomiting Surgical - Exam Osteopathic Statement: *. No significant issues noted on an osteopathic structural exam other than those noted in the History and Physical/Consult. Vital Signs Temp Pulse Resp BP Pulse Ox 99.3 F 88 16 138/82 100 05/15/16 21:00 05/15/16 21:00 05/15/16 21:00 05/15/16 21:00 05/15/16 21:00 - General well developed, well nourished, no distress - Eyes normal ocular movement - ENT normal mucosa, no hearing loss - Neck trachea midline - Respiratory normal respiratory effort, clear to auscultation absent: wheezing - Cardiovascular Rhythm: regular - Abdomen Abdomen: soft, non tender, bowel sounds - Neurologic normal coordination, normal sensation - Psychiatric oriented to time, oriented to person, oriented to place, speech is normal, memory intact Results - Labs 05/15/16 22:30 05/15/16 22:30 Abnormal Lab Results - Last 24 Hours (Table) 05/16/16 Range/Units 05:15 Total Creatine Kinase 29 L (30-135) U/L - Imaging CT scan - abdomen: report reviewed, image reviewed (ultrasound of the gallbladder and computed tomography scan of the abdomen and pelvis did not show an acute process.) Assessment and Plan (1) Nausea and vomiting Status: Acute (2) Abdominal pain Status: Acute Plan: we will order a HIDA scan with CCK. It's normal for an EGD. DVT and ulcer prophylaxis.Further recommendations to follow.
[2016-05-16] MEDS ORDERED: FAMOTIDINE 20 MG TAB PO PRN (16:10)
--- NOTE | 2016-05-16 17:51 | CONS ---
DATE OF CONSULTATION: REASON FOR CONSULTATION: Cardiac evaluation and treatment. Patient admitted to the hospital with abdominal pain, shortness of breath, history of pancreatitis, history of COPD. The patient does not admit to having constipation but the patient says that she had some diarrhea. Patient also very much nauseated, diffuse abdominal pain. The patient cardiac enzymes are normal and EKGs do not show any acute ischemic changes. There is no classically assisted for ischemic heart disease. Actually, no chest pain complaints. Patient is on: 1. Naprosyn 220 mg p.o. b.i.d. p.r.n. 2. Vitamin D3 10,000 units weekly. 3. Multivitamin. 4. Bentyl on a p.r.n. basis. 5. Famotidine 20 mg p.o. daily. 6. Zofran 4 mg p.o. every 8 hours. ALLERGIES: ALLERGIC TO MORPHINE. Review of systems history of pancreatitis. History of orthopedic surgery, history of precancerous melanoma removed in the right leg, partial right knee replacement. Left ( ) repair, lens implant. Patient is a former smoker. Past history of marijuana use. Physical examination revealed well-developed, well-nourished 61-year-old female with a pulse rate of 84 beats per minute and regular, blood pressure 138/82 mmHg, respirations of 16. Head normocephalic. HEENT unremarkable. Neck is supple. No thyroid enlargement. Good carotid upstroke bilaterally. Chest is symmetrical. CARDIAC EXAMINATION: S1 and S2. Lungs are clinically to auscultation and percussion. ABDOMEN: Soft, no organomegaly. Hyperactive bowel sounds. EXTREMITIES: Peripheral pulses. No pedal edema. BROWNFIELD PROGRAM COORDINATOR examination: Grossly within normal limits. ASSESSMENT: Abdominal pain and nausea, history of pancreatitis. RECOMMENDATIONS: Cardiology reyes, cardiac status is stable. Will not do any cardiac investigations other than an echocardiogram to assess LV function. If that is normal, no further cardiac work-up at this time. Thanks again for this kind referral.
--- NOTE | 2016-05-16 18:22 | NM ---
EXAMINATION TYPE: NM hepatobiliary w EF DATE OF EXAM: 05/16/2016 6:04 PM COMPARISON: NONE HISTORY: TECHNIQUE: After the intravenous administration of 5.5 mCi Tc 99m Mebrofenin hepatobiliary scintigrap hy is performed. Immediate images post injection. FINDINGS: There is prompt uptake of the tracer by the liver that has normal size and contour. There are no foca l defects. There is tracer in the gallbladder 8 minutes and in the small bowel at 22 minutes. The tra cer is mostly cleared from the liver at 60 minutes. The gallbladder ejection fraction is 89% with the stimulation. . IMPRESSION: Normal hepatobiliary scan. Normal gallbladder ejection fraction of 89%.
[2016-05-16 20:59] LABS: Appearance,Urine Clear (Clear); Bilirubin,Urine Negative (Negative); Glucose,Urine (UA) Negative (Negative); Ketones,Urine Negative (Negative); Leukocyte Esterase,Urine Negative (Negative); Nitrite,Urine Negative (Negative); PH, Urine 6.5 (5.0-8.0); Protein,Urine Negative (Negative); UA Billing (MACRO vs. MICRO) CHEM; Urobilinogen,Urine <2.0 mg/dL (<2.0)
[2016-05-16] MEDS: FAMOTIDINE 20 MG/2 ML VIAL IV SCH (21:42)
[2016-05-16] MEDS ORDERED: DOCUSATE 100 MG CAP PO PRN (22:23)
[2016-05-17 02:39] LABS: Cholesterol 191 mg/dL (<200); HDL Cholesterol 59 mg/dL (40-60); Triglycerides 102 mg/dL (<150)
[2016-05-17] MEDS: ONDANSETRON 4 MG/2 ML VIAL IVP PRN ×2 (03:47→12:25)
[2016-05-17] MEDS: HYDROmorphone 1 MG/ML 1 ML SYRINGE IVP PRN ×3 (04:20→21:50)
[2016-05-17] MEDS: SODIUM CHLORIDE 0.9% 1,000 ML IV SCH ×3 (04:23→17:28)
[2016-05-17 08:09] VITALS: BMI 31.0
[2016-05-17] MEDS: FLUCONAZOLE 100 MG TAB PO SCH ×2 (08:37→08:48)
[2016-05-17] MEDS: FAMOTIDINE 20 MG/2 ML VIAL IV SCH (08:47)
[2016-05-17] MEDS: ASPIRIN 325 MG TAB PO SCH (08:47)
[2016-05-17] MEDS: DOCUSATE 100 MG CAP PO SCH ×2 (08:47→21:42)
[2016-05-17] MEDS: ENOXAPARIN 40 MG/0.4 ML SYRINGE SQ SCH (08:48)
--- NOTE | 2016-05-17 09:23 | P.PN ---
Progress Note - Text HIDA is normal. Will proceed with EGD.
--- NOTE | 2016-05-17 09:46 | HP ---
DATE OF ADMISSION: CHIEF COMPLAINT: Nausea and vomiting. HISTORY OF PRESENT ILLNESS: Mrs. Ball is a 61-year-old female with known history of alcohol use and marijuana use on ( ) basis as per the patient. Patient came to the hospital with complaints of nausea and vomiting and abdominal pain, mainly in the epigastric region. No associated chest pain. Patient did have shortness of breath when she had this pain. Otherwise, patient does have nausea and vomiting and unable to keep down food which made her come to the hospital. Apparently, patient was in the hospital on 05/07/2016 for abdominal pain radiating to the back and was found to have acute pancreatitis with elevated lipase level to 320 and was sent home. Patient presented again with lower abdominal pain and was complaining of discharge from the vagina. The patient was started on metronidazole and recommended to follow with primary care physician. Patient too metronidazole for 2 days and patient was having nausea, vomiting since then and present to the hospital for further evaluation. Apparently patient has been drinking weekly as per the patient. Her CT of the abdomen and pelvis done on 05/10/16 showed fatty metamorphoses of the liver. Patient also has marijuana on weekly basis as per the patient. No fever. No chills. Patient says that after taking metronidazole the lower abdominal pain is better but still having frequency of the urine. Patient is not diabetic. No history of hypertension. No other medical problems. No recent illnesses or sick contacts at home. No recent travel. Urine culture on 05/12 showed Candidal species. PAST MEDICAL HISTORY: Pancreatitis. PAST SURGICAL HISTORY: Orthopedic surgery, precancerous melanoma removed from right leg, partial right knee replacement, left Achilles repaired and lengthened. Moles removed. Right Achilles tendon repaired. PSYCHOSOCIAL HISTORY: None. SOCIAL HISTORY: Patient does smoke about 1 pack in a week and patient says that the patient uses alcohol on weekly basis. Also uses marijuana, last use 3 weeks ago as per the patient. ALLERGIES: MORPHINE. FAMILY HISTORY: Father had melanoma and mother has macular degeneration. HOME MEDICATIONS: None usually, but recently started on Naprosyn, vitamin D3, multivitamins, Bentyl, famotidine and Zofran. PHYSICAL EXAMINATION: A 61-year-old female lying in bed comfortably, awake, alert, oriented x3. Appears to be in no apparent distress. VITALS: Blood pressure is 130/77, pulse is 67, respiration 19, temperature afebrile, and pulse ox 99% on room air. HEENT: Atraumatic, normocephalic. Neck is supple. No JVD. CVS: S1, S2 heard. No murmurs, no gallop, no rub. LUNGS: Bilateral air entry is present. No wheezing. No crackles. Nonlabored breathing. ABDOMEN: Soft, mild suprapubic tenderness. No guarding or rigidity. Bowel sounds are present. RUG TOUCH UP PAINTER: Awake, alert, oriented x3. No focal neurologic deficits. Grossly intact. EXTREMITIES: No edema. No clubbing or cyanosis. PSYCHIATRIC: Cooperative, nonsuicidal. SKIN: No rash or skin lesions. LABORATORY DATA: WBC 6.8, hemoglobin 15.1, platelets 340, INR 1.0. D-dimer is 0.23 not elevated. Sodium 142, potassium 4.6, chloride 106, bicarb is 24. BUN 10, creatinine 0.8, calcium 10.8. AST is 55, ALT is 79. Troponin x3 negative. Lipase level is 197. UA is cloudy. No ketones, no leukocyte esterase, nitrate negative, trace blood, rare mucous and rare bacteria and amorphous sediment rare, WBC 3. CHEST X-RAY: No significant change, no new intrathoracic abnormality is seen. Hepatobiliary scan nuclear medications showed normal hepatobiliary scan, normal gallbladder ejection fraction of 89%. Vaginal genital culture showed Candidal species. Urine culture on 05/07 showed skin and genital suha. IMPRESSION: 1. Nausea, vomiting and abdominal pain, likely to medications including metronidazole and also possible alcoholic gastritis. 2. Acute pancreatitis. 3. Vaginal Candidal infection. 4. Alcohol use on weekly basis as per the patient. 5. Fatty metamorphosis of the liver as per recent CT scan of the abdomen and pelvis. 6. Marijuana use. DISCUSSION AND PLAN: Patient will be continued on IV fluids, continue the symptomatic management for nausea and vomiting and started on Pepcid 20 mg IV q.12 hours. Continue the pain management with Dilaudid and follow closely. Will also start on Diflucan. The patient was seen by Cardiology and General Surgery. Will continue the current management and further recommendations based on clinical course. Anticipate discharge in 24 hours with more clinical improvement in pain.
--- NOTE | 2016-05-17 12:32 | P.PN ---
Subjective Principal diagnosis: Abdominal pain This is a 61-year-old female who presented to the hospital with symptoms of abdominal pain, and shortness of breath. Patient also was significantly nauseated. Patient denies having any chest discomfort at any time. Cardiac enzymes and troponins were negative and EKGs did not reveal any specific changes. She is currently being followed by GI and surgical services because of the abdominal discomfort. We are just awaiting the results of the echocardiogram with Doppler study. Patient is hemodynamically stable. Objective - Vital Signs Vital signs: Vital Signs Temp 97.3 F L 05/17/16 07:50 Pulse 68 05/17/16 07:50 Resp 18 05/17/16 07:50 BP 134/68 05/17/16 07:50 Pulse Ox 96 05/17/16 07:50 Intake & Output 05/16/16 05/17/16 05/17/16 18:59 06:59 18:59 Intake Total 300 Output Total 2 308 Balance -2 -8 Weight 74.84 kg 76.9 kg Intake: Oral 300 Output: Urine 300 Stool 2 8 Other: # Voids 1 2 # Bowel Movements 3 - Exam PHYSICAL EXAMINATION: HEENT: Head is atraumatic, normocephalic. Pupils equal, round. Neck is supple. There is no elevated jugular venous pressure. HEART EXAMINATION: Heart S1, S2 normal. No murmur or gallop heard. CHEST EXAMINATION: Lungs are clear to auscultation and precussion. No chest wall tenderness is noted on palpation or with deep breathing. ABDOMEN: Soft, nontender. Bowel sounds are heard. No organomegaly noted. EXTREMITIES: 2+ peripheral pulses with no evidence of peripheral edema and no calf tenderness noted. NEUROLOGIC patient is awake, alert and oriented -3. . - Labs CBC & Chem 7: 05/15/16 22:30 05/15/16 22:30 Assessment and Plan (1) ETOHism Status: Acute (2) Marijuana abuse Status: Acute (3) Abdominal pain Status: Acute (4) Nausea and vomiting Status: Acute (5) Acute pancreatitis Status: Acute Plan: From cardiology's perspective, we will review the patient's echocardiogram with Doppler study. If normal we will follow this patient with you now on an as- needed basis only, please don't hesitate to call with any questions. DNP note has been reviewed, I agree with a documented findings and plan of care. Patient was seen and examined.
--- NOTE | 2016-05-17 13:16 | ECHOF ---
Referral Reason:lv function MEASUREMENTS -------- HEIGHT: 157.5 cm WEIGHT: 76.7 kg BP: 125/60 RVIDd: 2.3 cm (< 3.3) IVSd: 1.0 cm (0.6 - 1.1) LVIDd: 3.5 cm (3.9 - 5.3) LVPWd: 1.0 cm (0.6 - 1.1) IVSs: 1.2 cm LVIDs: 2.6 cm LVPWs: 1.2 cm LA Diam: 3.1 cm (2.7 - 3.8) LAESV Index (A-L): 18.75 ml/m Ao Diam: 2.5 cm (2.0 - 3.7) AV Cusp: 1.8 cm (1.5 - 2.6) MV EXCURSION: 13.697 mm (> 18.000) MV EF SLOPE: 118 mm/s (70 - 150) EPSS: 0.2 cm MV E Lokesh: 1.14 m/s MV DecT: 258 ms MV A Lokesh: 1.24 m/s MV E/A Ratio: 0.92 RAP: 5.00 mmHg RVSP: 24.64 mmHg FINDINGS -------- Sinus rhythm. This was a technically good study. The left ventricular size is normal. Left ventricular wall thickness is normal. Overall left ventricular systolic function is normal with, an EF between 60 - 65 %. The right ventricle is normal in size and function. Normal LA size by volume 22+/-6 ml/m2. The right atrium is normal in size. The aortic valve is trileaflet and appears structurally normal. The mitral valve is normal. There is trace mitral regurgitation. Mild tricuspid regurgitation present. Right ventricular systolic pressure is normal at < 35 mmHg. There is no pulmonic regurgitation present. The aortic root size is normal. Normal inferior vena cava with normal inspiratory collapse consistent with estimated right atrial pressure of 5 mmHg. There is no pericardial effusion. CONCLUSIONS -------- 1. Sinus rhythm. 2. Right ventricular systolic pressure is normal at < 35 mmHg. 3. The aortic root size is normal. 4. There is no pericardial effusion. 5. This was a technically good study. 6. Left ventricular wall thickness is normal. 7. Overall left ventricular systolic function is normal with, an EF between 60 - 65 %. 8. Normal LA size by volume 22+/-6 ml/m2. 9. The aortic valve is trileaflet and appears structurally normal. 10. The mitral valve is normal. 11. There is trace mitral regurgitation. 12. Mild tricuspid regurgitation present. LEHR ATTENDANT: Estelita Israel RDCS
[2016-05-17] MEDS ORDERED: LACTATED RINGERS 1,000 ML IV ONE (15:52)
[2016-05-17] MEDS ORDERED: PROPOFOL 10 MG/ML 20 ML VIAL IV ONE (15:52)
[2016-05-17] MEDS ORDERED: LIDOCAINE 1% INJ 10MG/ML (20 ML MDV) ONE (15:52)
--- NOTE | 2016-05-17 16:07 | P.OP ---
Date of Procedure: 05/17/16 Preoperative Diagnosis: Nausea, vomiting, abdominal pain Postoperative Diagnosis: Same, mild duodenitis Procedure(s) Performed: EGD with biopsy Anesthesia: MAC Surgeon: Lucita Lomeli Pathology: other Condition: stable (Duodenum) Disposition: PACU Indications for Procedure: The patient presented with recurrent abdominal pain nausea and vomiting Operative Findings: She's taken to the endoscopy suite were gastroscope is passed per mouth to the third and fourth portions of the duodenum. The pharynx is unremarkable. The esophagus is without evidence of esophagitis or mass lesion. The GE junction is without inflammatory change. She has some mild erythema in the duodenal bulb and cold biopsies were obtained there. Otherwise the stomach pylorus and duodenum were without evidence of polyp mass lesion or other mucosal abnormality. She tolerated the procedure without difficulty and is taken recovery room in satisfactory condition. We'll reinitiate her diet and see is she does.
[2016-05-17] MEDS: PANTOPRAZOLE 40 MG/10 ML VIAL IVP SCH ×2 (17:28→21:41)
--- NOTE | 2016-05-17 18:02 | PN ---
The patient is admitted with nausea, vomiting. Patient was ruled out acute coronary artery syndrome. Patient's echocardiogram is essentially within normal limits and patient is feeling much better today. Her nausea is probably secondary to either metronidazole or gastritis. Patient will undergo upper GI endoscopy today. After that, we will advance the diet, the patient probably can be discharged tomorrow. REVIEW OF SYSTEMS: CARDIOVASCULAR: No chest pain, no orthopnea, no PND, no palpitations. PULMONARY: Denied any shortness of breath. No cough or hemoptysis. GASTROINTESTINAL: As mentioned above. NEUROLOGIC: No headaches, no weakness, no numbness. Medications were reviewed and patient is on Diflucan for vaginal candidiasis, from the vaginal fluid labs that were obtained as an outpatient, I am able to review them here. PHYSICAL EXAMINATION: Temperature 97.7, pulse of 58, respiratory rate of 18, blood pressure 157/80, saturating at 99% on room air. GENERAL: The patient is alert and oriented x3, not in any acute distress. Well developed, well nourished. HEENT: Pupils are round and equally reacting to light. EOMI. No scleral icterus. No conjunctival pallor. Normocephalic, atraumatic. No pharyngeal erythema. No thyromegaly. CARDIOVASCULAR: S1 and S2 present. No murmurs, rubs, or gallops. PULMONARY: Chest is clear to auscultation, no wheezing or crackles. ABDOMEN: Soft, nontender, nondistended, normoactive bowel sounds. No palpable organomegaly. MUSCULOSKELETAL: No joint swelling or deformity. EXTREMITIES: No cyanosis, clubbing, or pedal edema. NEUROLOGICAL: Gross neurological examination did not reveal any focal deficits. SKIN: No rashes. LABORATORY DATA: None available from today. ASSESSMENT AND PLAN: 1. Nausea, vomiting, secondary to metronidazole versus alcoholic gastritis. 2. Vaginal candidiasis. 3. Alcohol abuse. Counseling was provided. 4. Fatty liver. 5. Marijuana use, counselling was provided. Plan is to continue with the present medications. After the upper GI endoscopy, patient diet will be advanced. Possibility of discharge tomorrow. Metronidazole is not necessary as patient has mary for which patient will need Fluconazole. She received 2 doses of fluconazole, after which she may not need any more antibiotics. Patient does not have any ( ) UA is essentially within normal limits.
[2016-05-18] MEDS: FLUCONAZOLE 100 MG TAB PO SCH (00:25)
[2016-05-18] MEDS: ONDANSETRON 4 MG/2 ML VIAL IVP PRN (01:25)
[2016-05-18] MEDS: HYDROmorphone 1 MG/ML 1 ML SYRINGE IVP PRN ×2 (01:26→05:55)
[2016-05-18] MEDS: SODIUM CHLORIDE 0.9% 1,000 ML IV SCH ×2 (06:02→11:12)
[2016-05-18 08:02] VITALS: RESP 16; TEMP 98.4
[2016-05-18] MEDS: DOCUSATE 100 MG CAP PO SCH (09:23)
[2016-05-18] MEDS: ASPIRIN 325 MG TAB PO SCH (09:23)
[2016-05-18] MEDS: ENOXAPARIN 40 MG/0.4 ML SYRINGE SQ SCH (09:24)
[2016-05-18] MEDS: PANTOPRAZOLE 40 MG/10 ML VIAL IVP SCH (09:24)
[2016-05-18 11:45] VITALS: BP 130/86; PULSE 63
--- NOTE | 2016-05-18 14:02 | P.PN ---
Progress Note - Text The patient is feeling better. She is tolerating a diet. Antibiotics had been reinitiated for the presumed PID. Her workup from a surgical standpoint has been unremarkable. We'll follow on a when necessary basis
--- NOTE | 2016-05-19 07:33 | DS ---
DATE OF ADMISSION: 05/16/2016 DATE OF DISCHARGE: 05/18/2016 Patient is admitted with nausea, vomiting, most probably related to metronidazole. Patient was started on metronidazole with suspicion of bacterial vaginal cyst, although finalization of cultures showed bacterial vaginal candidiasis for which patient received about 3 days of fluconazole and patient is requesting Mycostatin vaginal, a prescription of which will be provided and patient underwent upper GI endoscopy which showed mild duodenitis. Patient is already on famotidine which she can continue and patient will be discharged today to follow with Dr. Payam Durant as an outpatient. Patient was seen and examined on the day of discharge. Vitals are stable. PHYSICAL EXAMINATION: GENERAL: The patient is alert and oriented x3, not in any acute distress. Well developed, well nourished. HEENT: Pupils are round and equally reacting to light. EOMI. No scleral icterus. No conjunctival pallor. Normocephalic, atraumatic. No pharyngeal erythema. No thyromegaly. CARDIOVASCULAR: S1 and S2 present. No murmurs, rubs, or gallops. PULMONARY: Chest is clear to auscultation, no wheezing or crackles. ABDOMEN: Soft, nontender, nondistended, normoactive bowel sounds. No palpable organomegaly. MUSCULOSKELETAL: No joint swelling or deformity. EXTREMITIES: No cyanosis, clubbing, or pedal edema. NEUROLOGICAL: Gross neurological examination did not reveal any focal deficits. SKIN: No rashes. FINAL DIAGNOSES: 1. Nausea, vomiting secondary to most probably metronidazole. 2. Mild duodenitis. 3. Vaginal candidiasis. 4. Alcohol abuse counseling was provided. 5. Fatty liver secondary to alcohol use. 6. Marijuana use counseling was provided. Patient will be discharged today. Please refer to my depart summary for the list of discharge medications. Activity as tolerated and alcohol cessation counseling was provided.
== END 2016-05-18 12:55 | disposition home or self-care (01) ==
LOC: EC 21:00 → 3OBS 05-16 00:26 → 6SEL 05-16 08:06
PROVIDERS: ADMIT Hospitalist; ATTEND Hospitalist
DX: K85.90 Acute pancreatitis without necrosis or infection, unspecified (principal); K29.80 Duodenitis without bleeding; B37.3 Candidiasis of vulva and vagina; K70.0 Alcoholic fatty liver; F12.10 Cannabis abuse, uncomplicated; F10.20 Alcohol dependence, uncomplicated; F17.200 Nicotine dependence, unspecified, uncomplicated; F41.9 Anxiety disorder, unspecified; M17.0 Bilateral primary osteoarthritis of knee; Z82.49 Family history of ischemic heart disease and other diseases of the circulatory system; R06.02 Shortness of breath; R06.00 Dyspnea, unspecified; Z88.5 Allergy status to narcotic agent; R53.1 Weakness; R07.89 Other chest pain; R19.7 Diarrhea, unspecified; Z79.2 Long term (current) use of antibiotics
CPT/HCPCS: 96375 ×4; 96361 ×2; 96374 ×4; 99285 ×2; 36415; 93005; 93306; 85379; 88305; 80061; 80053; 82150; 82550 ×2; 82553 ×2; 83605; 83690; 84484 ×2; 85025; 85610; 85730; 81003; 71020; 78226; 43239; 96376 ×2; G0378 ×3; A9537; J3360; J2405 ×4; J2001; J1650 ×3; J1885; J1170 ×4; J2704; C9113 ×2; 96372

== ENCOUNTER 2016-06-14 08:14 | Day surgery (SDC) | payer BC ==
[2016-06-10 09:19] VITALS: BMI 28.7
[~2016-06-14 08:14] MED LIST: LACTATED RINGERS 1,000 ML IV SCH; LIDOCAINE 1% 20 ML VIAL (10MG/ML) FOR IV START INTRADERMA PRN
[2016-06-14 08:52] VITALS: TEMP 98
[2016-06-14] MEDS ORDERED: MIDAZOLAM 2 MG/2 ML VIAL IVP ONE (09:01)
[2016-06-14] MEDS ORDERED: fentaNYL (PF) 50 MCG/ML 2 ML AMP ONE (09:27)
[2016-06-14] MEDS ORDERED: ONDANSETRON 4 MG/2 ML VIAL ONE (09:27)
[2016-06-14] MEDS ORDERED: MIDAZOLAM 2 MG/2 ML VIAL ONE (09:27)
[2016-06-14] MEDS ORDERED: PROPOFOL 10 MG/ML 20 ML VIAL IV ONE (09:27)
--- NOTE | 2016-06-14 09:32 | P.GSHP ---
History of Present Illness H&P Date: 06/14/16 Chief Complaint: Screening colonoscopy, history of diverticulitis This is a 7-year-old female for from Dr. Payam youngblood. Patient presents today for colonoscopy. She's had history of diverticulitis. - Constitutional Constitutional: Reports as per HPI Past Medical History Past Medical History: GERD/Reflux, Osteoarthritis (OA) Additional Past Medical History / Comment(s): STATES PRE-CANCEROUS SKIN LESIONS REMOVED., UMBILICAL HERNIA, CHRONIC CONSTIPATION, ENVIRONMENTAL ALLERGIES., PT SCHEDULED FOR COLONOSCOPY 06/14/16. History of Any Multi-Drug Resistant Organisms: None Reported Past Surgical History: Appendectomy, Breast Surgery, Orthopedic Surgery, Tubal Ligation Additional Past Surgical History / Comment(s): PRE-CANCEROUS SKIN LESIONS RIGHT NECK , CHEST AND RIGHT LEG, RIGHT KNEE ARTHROSCOPY, PARTIAL RIGHT KNEE, RAYA ACHILLIES TENDON REPAIR., RIGHT BREAST BX, COLONOSCOPY. Past Anesthesia/Blood Transfusion Reactions: No Reported Reaction Additional Past Anesthesia/Blood Transfusion Reaction / Comment(s): STATES PONV CAUSED FROM MORPHINE. Past Psychological History: Anxiety Additional Psychological History / Comment(s): . Smoking Status: Former smoker Past Alcohol Use History: Occasional Additional Past Alcohol Use History / Comment(s): QUIT SMOKING 2010. STARTED SMOKING AGE 16, SMOKED 1 PPD OR LESS. SMOKED [id number] YEARS. STATES SHE DRINKS 6 PACK ON WEEKEND. Past Drug Use History: Marijuana Additional Drug Use History / Comment(s): CURRENT INGESTION OF MARIJUANA - Past Family History Father Family Medical History: Cancer Additional Family Medical History / Comment(s): Father from melanoma Mother Family Medical History: Congestive Heart Failure (CHF), Deep Vein Thrombosis ( DVT), Rheumatoid Arthritis (RA) Additional Family Medical History / Comment(s): macular degeneration Brother(s) Family Medical History: Cancer Additional Family Medical History / Comment(s): Brother of melanoma at the age of 46yrs. Medications and Allergies Home Medications Medication Instructions Recorded Confirmed Type Cholecalciferol (Vitamin D3) 10,000 unit PO DAILY 05/07/16 06/14/16 History [Vitamin D3] Multivitamins, Thera [Multivitamin 1 tab PO DAILY 05/07/16 06/14/16 History (formulary)] ALPRAZolam [Xanax] 0.25 mg PO DAILY PRN 06/10/16 06/14/16 History Acetaminophen Tab [Tylenol Tab] 1,000 mg PO Q6HR PRN 06/10/16 06/14/16 History Allergy Injections Weekly 1 dose IM WEEKLY 06/10/16 06/14/16 History Calcium Carbonate [Tums] 500 mg PO DAILY PRN 06/10/16 06/14/16 History Citracal 1 tab PO DAILY 06/10/16 06/14/16 History Famotidine [Pepcid] 20 mg PO BID PRN 06/10/16 06/14/16 History Fexofenadine HCl [Gia Allergy] 180 mg PO DAILY PRN 06/10/16 06/14/16 History L.acidoph,Paracasei, B.lactis 1 each PO DAILY 06/10/16 06/14/16 History [Probiotic] Naproxen Sodium [Aleve] 440 mg PO BID PRN 06/10/16 06/14/16 History Psyllium Husk 100% [Metamucil 6 gm PO BID 06/10/16 06/14/16 History Packet] Allergies Allergy/AdvReac Type Severity Reaction Status Date / Time morphine AdvReac Severe Nausea & Verified 06/14/16 08:46 Vomiting Surgical - Exam Vital Signs Temp Pulse Resp BP Pulse Ox 98.0 F 96 16 136/90 99 06/14/16 08:50 06/14/16 08:50 06/14/16 08:50 06/14/16 08:50 06/14/16 08:50 - General well developed, no distress - Eyes PERRL - ENT normal pinna - Neck no masses - Respiratory normal expansion - Cardiovascular Rhythm: regular - Abdomen Abdomen: soft, non tender Assessment and Plan Plan: History of diverticulitis. We'll perform screening colonoscopy.
--- NOTE | 2016-06-14 09:52 | P.OP ---
Date of Procedure: 06/14/16 Preoperative Diagnosis: Screening colonoscopy Postoperative Diagnosis: Mild diverticular changes Procedure(s) Performed: Colonoscopy Anesthesia: MAC Surgeon: Thien Villasenor Pathology: none sent Condition: stable Disposition: PACU Description of Procedure: The patient's placed on the endoscopy table in the lateral position. She received IV sedation. Digital rectal exam was performed which revealed no abnormalities. The flexible colonoscope was then placed patient anus and passed throughout the entire colon. The ileocecal valve was visualized. The cecum, ascending and transverse colon appeared normal. In the descending and sigmoid colon there was mild diverticular changes. The scope was then brought back the rectum this appeared normal. Scope was withdrawn for patient.
[2016-06-14 10:16] VITALS: BP 130/82; PULSE 72; RESP 18
== END 2016-06-14 10:33 | disposition home or self-care (01) ==
LOC: ORWHC2ENDO 08:14
PROVIDERS: ATTEND Surgery
DX: Z12.11 Encounter for screening for malignant neoplasm of colon (principal); K57.30 Diverticulosis of large intestine without perforation or abscess without bleeding; K21.9 Gastro-esophageal reflux disease without esophagitis; F41.9 Anxiety disorder, unspecified; M19.90 Unspecified osteoarthritis, unspecified site; Z87.891 Personal history of nicotine dependence; Z79.899 Other long term (current) drug therapy; Z88.5 Allergy status to narcotic agent
CPT/HCPCS: J2250; J2405; J3010; J2704; G0121

== ENCOUNTER 2016-06-15 08:19 | Day surgery (SDC) | payer BC ==
[2016-06-10 09:35] VITALS: BMI 28.7
[~2016-06-15 08:19] MED LIST changes: +DEXAMETHASONE SOD PHOSPHATE 10 MG/ML 1 ML VIAL IV ONE; +HEPARIN SODIUM,PORCINE 5,000 UNIT/ML 1 ML VIAL SQ ONE; -LIDOCAINE 1% 20 ML VIAL (10MG/ML) FOR IV START INTRADERMA PRN; +MIDAZOLAM 2 MG/2 ML VIAL IV PRN; +ONDANSETRON 4 MG/2 ML VIAL IVP ONE; +SCOPOLAMINE 1.5MG/72HR PATCH TRANSDERM ONE; +ceFAZolin 2 GM in SODIUM CHLORIDE 0.9% 100 ML IVPB ONE; +fentaNYL (PF) 50 MCG/ML 2 ML AMP IV PRN
--- NOTE | 2016-06-15 09:16 | P.GSHP ---
History of Present Illness H&P Date: 06/15/16 Chief Complaint: Right upper quadrant pain, umbilical hernia 7-year-old female who presents today for laparoscopic ostectomy and laparoscopic repair of umbilical hernia. Patient has complaints of right upper quadrant pain. Her recent I scan shows elevated ejection fraction of 89% consistent with biliary hyperkinesia. - Constitutional Constitutional: Reports as per HPI Past Medical History Past Medical History: GERD/Reflux, Osteoarthritis (OA) Additional Past Medical History / Comment(s): STATES PRE-CANCEROUS SKIN LESIONS REMOVED., UMBILICAL HERNIA, CHRONIC CONSTIPATION, ENVIRONMENTAL ALLERGIES., PT SCHEDULED FOR COLONOSCOPY 06/14/16. History of Any Multi-Drug Resistant Organisms: None Reported Past Surgical History: Appendectomy, Breast Surgery, Orthopedic Surgery, Tubal Ligation Additional Past Surgical History / Comment(s): PRE-CANCEROUS SKIN LESIONS RIGHT NECK , CHEST AND RIGHT LEG, RIGHT KNEE ARTHROSCOPY, PARTIAL RIGHT KNEE, RAYA ACHILLIES TENDON REPAIR., RIGHT BREAST BX, COLONOSCOPY. Past Anesthesia/Blood Transfusion Reactions: No Reported Reaction Additional Past Anesthesia/Blood Transfusion Reaction / Comment(s): STATES PONV CAUSED FROM MORPHINE. Past Psychological History: Anxiety Additional Psychological History / Comment(s): . Smoking Status: Former smoker Past Alcohol Use History: Occasional Additional Past Alcohol Use History / Comment(s): QUIT SMOKING 2010. STARTED SMOKING AGE 16, SMOKED 1 PPD OR LESS. SMOKED [id number] YEARS. STATES SHE DRINKS 6 PACK ON WEEKEND. Past Drug Use History: Marijuana Additional Drug Use History / Comment(s): CURRENT INGESTION OF MARIJUANA - Past Family History Father Family Medical History: Cancer Additional Family Medical History / Comment(s): Father from melanoma Mother Family Medical History: Congestive Heart Failure (CHF), Deep Vein Thrombosis ( DVT), Rheumatoid Arthritis (RA) Additional Family Medical History / Comment(s): macular degeneration Brother(s) Family Medical History: Cancer Additional Family Medical History / Comment(s): Brother of melanoma at the age of 46yrs. Medications and Allergies Home Medications Medication Instructions Recorded Confirmed Type Cholecalciferol (Vitamin D3) 10,000 unit PO DAILY 05/07/16 06/14/16 History [Vitamin D3] Multivitamins, Thera [Multivitamin 1 tab PO DAILY 05/07/16 06/14/16 History (formulary)] ALPRAZolam [Xanax] 0.25 mg PO DAILY PRN 06/10/16 06/14/16 History Acetaminophen Tab [Tylenol Tab] 1,000 mg PO Q6HR PRN 06/10/16 06/14/16 History Allergy Injections Weekly 1 dose IM WEEKLY 06/10/16 06/14/16 History Calcium Carbonate [Tums] 500 mg PO DAILY PRN 06/10/16 06/14/16 History Citracal 1 tab PO DAILY 06/10/16 06/14/16 History Famotidine [Pepcid] 20 mg PO BID PRN 06/10/16 06/14/16 History Fexofenadine HCl [Gia Allergy] 180 mg PO DAILY PRN 06/10/16 06/14/16 History L.acidoph,Paracasei, B.lactis 1 each PO DAILY 06/10/16 06/14/16 History [Probiotic] Naproxen Sodium [Aleve] 440 mg PO BID PRN 06/10/16 06/14/16 History Psyllium Husk 100% [Metamucil 6 gm PO BID 06/10/16 06/14/16 History Packet] Allergies Allergy/AdvReac Type Severity Reaction Status Date / Time morphine AdvReac Severe Nausea & Verified 06/14/16 08:46 Vomiting Surgical - Exam Vital Signs Temp Pulse Resp BP Pulse Ox 98.9 F 80 16 145/84 99 06/15/16 09:02 06/15/16 09:02 06/15/16 09:02 06/15/16 09:02 06/15/16 09:02 - General well developed, no distress - Eyes PERRL - ENT normal pinna - Neck no masses - Respiratory normal expansion - Cardiovascular Rhythm: regular - Abdomen Abdomen: soft, non tender Hernia: umbilical Results - Imaging Additional studies: HIDA scan shows elevated ejection fraction consistent with biliary hyperkinesia Assessment and Plan Plan: Abnormal HIDA scan We'll perform laparoscopic ostectomy and laparoscopic repair of umbilical hernia.
[2016-06-15] MEDS ORDERED: LIDOCAINE 1% 20 ML VIAL (10MG/ML) FOR IV START INTRADERMA ONE ×2 (09:30→09:41)
[2016-06-15] MEDS ORDERED: LIDOCAINE 1% INJ 10MG/ML (20 ML MDV) ONE (09:42)
[2016-06-15] MEDS ORDERED: GLYCOPYRROLATE 0.2 MG/ML 2 ML VIAL ONE (09:42)
[2016-06-15] MEDS ORDERED: PROPOFOL 10 MG/ML 20 ML VIAL IV ONE (09:42)
[2016-06-15] MEDS ORDERED: KETOROLAC 30 MG/ML 1 ML VIAL ONE (09:42)
[2016-06-15] MEDS ORDERED: ROCURONIUM BROMIDE 10 MG/ML 10 ML VIAL IV ONE (09:42)
[2016-06-15] MEDS ORDERED: fentaNYL (PF) 50 MCG/ML 2 ML AMP ONE (09:42)
[2016-06-15] MEDS ORDERED: NEOSTIGMINE 1 MG/ML 10 ML VIAL ONE (09:42)
[2016-06-15] MEDS ORDERED: SUCCINYLCHOLINE CHLORIDE 100 MG/5 ML SYR IV ONE (09:42)
[2016-06-15] MEDS ORDERED: BUPIVACAIN-EPI 0.25%-1:200,000 30 ML VIAL SQ ONE ×2 (10:06→10:28)
[2016-06-15] MEDS ORDERED: LACTATED RINGERS 1,000 ML IV ONE (10:28)
--- NOTE | 2016-06-15 10:31 | P.OP ---
Date of Procedure: 06/15/16 Preoperative Diagnosis: Cholecystitis Umbilical hernia Postoperative Diagnosis: Cholecystitis Umbilical hernia Procedure(s) Performed: Laparoscopic cholecystectomy Laparoscopic repair of umbilical hernia Anesthesia: MAC Surgeon: Thien Villasenor Estimated Blood Loss (ml): 5 Pathology: other (Gallbladder) Condition: stable Disposition: PACU Description of Procedure: The patient was placed on the operating table. The patient received a general endotracheal tube anesthesia. The patients abdomen was prepped and draped in the usual sterile fashion. Through an infraumbilical stab incision, the fascia of the anterior abdominal wall was grasped with a pair of Kochers and then the Veress needle was placed in the peritoneal cavity. Position of the Veress needle was confirmed with positive drop test. The abdomen was then insufflated. After adequate insufflation, the 10 mm trocar was placed in the peritoneal cavity. Following this the laparoscope was placed in the peritoneal cavity. The patient was placed in the head-up, right side up position and then a 5 mm trocar was placed in the right lateral and right subcostal position under direct visualization. A 8 mm trocar was placed in the epigastric position. The gallbladder was grasped in the fundus and infundibulum. Traction on the gallbladder was placed in the lateral and the cephalad positions. The triangle of Calot was visualized.. The cystic duct was bluntly dissected until the union of the cystic duct and common bile duct was seen. The cystic duct was then divided and sealed with the Harmonic scissors. A PDS Endoloop was then placed throughout the cystic duct stump. The cystic artery divided and sealed with the Harmonic scissors. The gallbladder was then removed from the liver bed using Harmonic scissors. The gallbladder was then extracted through the epigastric port site. Operative field was checked for any bleeding spots and Harmonic scissors was used to coagulate the liver bed. The abdomen was irrigated. The trocars were removed. The umbilical hernia was repaired laparoscopically using 0 Ethibond suture and the Michi Bonner suture passer. The skin was closed using interrupted 3-0 Vicryl suture. Dermabond dressing were applied. The patient tolerated the procedure well.
[2016-06-15] MEDS ORDERED: ONDANSETRON 4 MG/2 ML VIAL IVP ONE (10:52)
[2016-06-15 11:08] VITALS: TEMP 98.1
[2016-06-15] MEDS ORDERED: METOCLOPRAMIDE 5 MG/ML 2 ML VIAL IVP ONE (11:12)
[2016-06-15 12:14] VITALS: RESP 18
[2016-06-15 12:59] VITALS: BP 152/86; PULSE 76
== END 2016-06-15 13:23 | disposition home or self-care (01) ==
LOC: OR 08:19
PROVIDERS: ATTEND Surgery
DX: K42.9 Umbilical hernia without obstruction or gangrene (principal); K81.9 Cholecystitis, unspecified; K21.9 Gastro-esophageal reflux disease without esophagitis; F12.90 Cannabis use, unspecified, uncomplicated; M19.90 Unspecified osteoarthritis, unspecified site; Z87.891 Personal history of nicotine dependence; F41.9 Anxiety disorder, unspecified; Z79.899 Other long term (current) drug therapy; Z88.5 Allergy status to narcotic agent
CPT/HCPCS: 88304; 47562; 49652; J1644; J1100; J2710; J2765; J0690; J2405; J2001; J3010; J1885; J0330; J2704

== ENCOUNTER 2016-06-19 09:40 | Emergency (ER) | payer BC ==
--- NOTE | 2016-06-19 10:18 | ED ---
Abdominal Pain HPI - General Chief Complaint: Abdominal Pain Stated Complaint: vomiting Time Seen by Provider: 06/19/16 09:52 Source: patient, RN notes reviewed Mode of arrival: EMS Limitations: no limitations - History of Present Illness Initial Comments: Patient is 61-year-old female presents to emergency room for admission nausea. Patient states she had an umbilical hernia repair and cholecystectomy on by Dr. Villasenor. Patient states she's been very nauseous since surgery. Patient states she's only had Pepcid at home. Patient denies any pain. Patient denies any vomiting to suggest she's been very nauseous so she called 911. Patient denies fevers or chills. Patient denies chest pain or shortness of breath. Patient does states she's been urinating frequently. Patient denies any burning. Patient also stated she's history appendectomy. Patient denies any other history of abdominal surgeries. Patient denies any drainage or swelling at the incision sites. - Related Data Home Medications Medication Instructions Recorded Confirmed Cholecalciferol (Vitamin D3) 10,000 unit PO DAILY 05/07/16 06/19/16 [Vitamin D3] Multivitamins, Thera [Multivitamin 1 tab PO DAILY 05/07/16 06/19/16 (formulary)] ALPRAZolam [Xanax] 0.25 mg PO DAILY PRN 06/10/16 06/19/16 Acetaminophen Tab [Tylenol Tab] 1,000 mg PO Q6HR PRN 06/10/16 06/19/16 Allergy Injections Weekly 1 dose IM WE 06/10/16 06/19/16 Calcium Carbonate [Tums] 500 mg PO DAILY PRN 06/10/16 06/19/16 Citracal 1 tab PO DAILY 06/10/16 06/19/16 Famotidine [Pepcid] 20 mg PO BID PRN 06/10/16 06/19/16 Fexofenadine HCl [Gia Allergy] 180 mg PO DAILY PRN 06/10/16 06/19/16 L.acidoph,Paracasei, B.lactis 1 cap PO DAILY 06/10/16 06/19/16 [Probiotic] Naproxen Sodium [Aleve] 440 mg PO BID PRN 06/10/16 06/19/16 Psyllium Husk 100% [Metamucil 6 gm PO BID 06/10/16 06/19/16 Packet] HYDROcodone/APAP 7.5-325MG [[place] 1 tab PO Q4H PRN 06/19/16 06/19/16 7.5] Previous Rx's Medication Instructions Recorded Docusate [Colace] 100 mg PO BID #20 capsule 06/15/16 Ondansetron Odt [Zofran Odt] 4 mg PO Q8HR PRN #12 tab 06/19/16 Allergies Allergy/AdvReac Type Severity Reaction Status Date / Time morphine AdvReac Severe Nausea & Verified 06/19/16 10:04 Vomiting Review of Systems ROS Statement: Those systems with pertinent positive or pertinent negative responses have been documented in the HPI. ROS Other: All systems not noted in ROS Statement are negative. Past Medical History Past Medical History: GERD/Reflux, Osteoarthritis (OA) Additional Past Medical History / Comment(s): STATES PRE-CANCEROUS SKIN LESIONS REMOVED., UMBILICAL HERNIA, CHRONIC CONSTIPATION, ENVIRONMENTAL ALLERGIES., PT SCHEDULED FOR COLONOSCOPY 06/14/16. History of Any Multi-Drug Resistant Organisms: None Reported Past Surgical History: Appendectomy, Breast Surgery, Cholecystectomy, Hernia Repair, Joint Replacement, Orthopedic Surgery, Tubal Ligation Additional Past Surgical History / Comment(s): PRE-CANCEROUS SKIN LESIONS RIGHT NECK , CHEST AND RIGHT LEG, RIGHT KNEE ARTHROSCOPY, PARTIAL RIGHT KNEE, RAYA ACHILLIES TENDON REPAIR., RIGHT BREAST BX, COLONOSCOPY. Past Anesthesia/Blood Transfusion Reactions: No Reported Reaction Additional Past Anesthesia/Blood Transfusion Reaction / Comment(s): STATES PONV CAUSED FROM MORPHINE. Past Psychological History: Anxiety Additional Psychological History / Comment(s): . Smoking Status: Former smoker Past Alcohol Use History: Occasional Additional Past Alcohol Use History / Comment(s): QUIT SMOKING 2010. STARTED SMOKING AGE 16, SMOKED 1 PPD OR LESS. SMOKED [id number] YEARS. STATES SHE DRINKS 6 PACK ON WEEKEND. Past Drug Use History: Marijuana Additional Drug Use History / Comment(s): CURRENT INGESTION OF MARIJUANA - Past Family History Father Family Medical History: Cancer Additional Family Medical History / Comment(s): Father from melanoma Mother Family Medical History: Congestive Heart Failure (CHF), Deep Vein Thrombosis ( DVT), Rheumatoid Arthritis (RA) Additional Family Medical History / Comment(s): macular degeneration Brother(s) Family Medical History: Cancer Additional Family Medical History / Comment(s): Brother of melanoma at the age of 46yrs. General Exam - General Exam Comments Initial Comments: Laying in exam room, acute distress. Limitations: no limitations General appearance: alert, in no apparent distress Head exam: Present: atraumatic, normocephalic, normal inspection Eye exam: Present: normal appearance ENT exam: Present: normal exam Neck exam: Present: normal inspection Respiratory exam: Present: normal lung sounds bilaterally. Absent: respiratory distress Cardiovascular Exam: Present: regular rate, normal rhythm, normal heart sounds GI/Abdominal exam: Present: soft, other (Healing surgical incisions from hernia repair and closed cystectomy. No edema, erythema or drainage noted from the incision sites.). Absent: distended Extremities exam: Present: normal inspection Back exam: Present: normal inspection Neurological exam: Present: alert, oriented X3, CN II-XII intact, normal gait Psychiatric exam: Present: normal affect, normal mood Skin exam: Present: warm, dry, intact, normal color. Absent: rash Course Vital Signs 06/19/16 06/19/16 06/19/16 09:42 12:10 14:56 Temperature 97.7 F 98.7 F Pulse Rate 98 76 71 Respiratory 18 18 16 Rate Blood Pressure 164/87 172/86 170/96 O2 Sat by Pulse 99 98 Oximetry Medical Decision Making - Medical Decision Making Patient is a 61-year-old female presents to the emergency room for evaluation of nausea and postoperative abdominal pain. Patient is feeling better after nausea and pain medications. CT shows postsurgical findings. Advised patient to follow-up with her surgeon this week. Patient states she understands her diagnosis discussed with her. Return parameters discussed. Case discussed Dr. Lawrence. - Lab Data Result diagrams: 06/19/16 10:30 06/19/16 10:30 Lab Results 06/19/16 06/19/16 06/19/16 Range/Units 10:30 10:30 10:30 WBC 7.0 (3.8-10.6) k/uL RBC 4.56 (3.80-5.40) m/uL Hgb 13.7 (11.4-16.0) gm/dL Hct 41.3 (34.0-46.0) % MCV 90.5 (80.0-100.0) fL MCH 30.0 (25.0-35.0) pg MCHC 33.2 (31.0-37.0) g/dL RDW 13.1 (11.5-15.5) % Plt Count 325 (150-450) k/uL Neutrophils % 75 % Lymphocytes % 18 % Monocytes % 5 % Eosinophils % 1 % Basophils % 1 % Neutrophils # 5.2 (1.3-7.7) k/uL Lymphocytes # 1.2 (1.0-4.8) k/uL Monocytes # 0.3 (0-1.0) k/uL Eosinophils # 0.0 (0-0.7) k/uL Basophils # 0.0 (0-0.2) k/uL Sodium 142 (137-145) mmol/L Potassium 4.1 (3.5-5.1) mmol/L Chloride 109 H (98-107) mmol/L Carbon Dioxide 23 (22-30) mmol/L Anion Gap 10 mmol/L BUN 8 (7-17) mg/dL Creatinine 0.67 (0.52-1.04) mg/dL Est GFR (MDRD) Af Amer >60 (>60 ml/min/1.73 sqM) Est GFR (MDRD) Non-Af >60 (>60 ml/min/1.73 sqM) Glucose 115 H (74-99) mg/dL Calcium 10.0 (8.4-10.2) mg/dL Total Bilirubin 1.1 (0.2-1.3) mg/dL AST 55 H (14-36) U/L ALT 101 H (9-52) U/L Alkaline Phosphatase 76 (38-126) U/L Total Protein 7.3 (6.3-8.2) g/dL Albumin 4.2 (3.5-5.0) g/dL Amylase 42 (30-110) U/L Lipase 124 (23-300) U/L Urine Color Urine Appearance (Clear) Urine pH (5.0-8.0) Ur Specific [place] (1.001-1.035) Urine Protein (Negative) Urine Glucose (UA) (Negative) Urine Ketones (Negative) Urine Blood (Negative) Urine Nitrite (Negative) Urine Bilirubin (Negative) Urine Urobilinogen (<2.0) mg/dL Ur Leukocyte Esterase (Negative) 06/19/16 Range/Units 10:30 WBC (3.8-10.6) k/uL RBC (3.80-5.40) m/uL Hgb (11.4-16.0) gm/dL Hct (34.0-46.0) % MCV (80.0-100.0) fL MCH (25.0-35.0) pg MCHC (31.0-37.0) g/dL RDW (11.5-15.5) % Plt Count (150-450) k/uL Neutrophils % % Lymphocytes % % Monocytes % % Eosinophils % % Basophils % % Neutrophils # (1.3-7.7) k/uL Lymphocytes # (1.0-4.8) k/uL Monocytes # (0-1.0) k/uL Eosinophils # (0-0.7) k/uL Basophils # (0-0.2) k/uL Sodium (137-145) mmol/L Potassium (3.5-5.1) mmol/L Chloride (98-107) mmol/L Carbon Dioxide (22-30) mmol/L Anion Gap mmol/L BUN (7-17) mg/dL Creatinine (0.52-1.04) mg/dL Est GFR (MDRD) Af Amer (>60 ml/min/1.73 sqM) Est GFR (MDRD) Non-Af (>60 ml/min/1.73 sqM) Glucose (74-99) mg/dL Calcium (8.4-10.2) mg/dL Total Bilirubin (0.2-1.3) mg/dL AST (14-36) U/L ALT (9-52) U/L Alkaline Phosphatase (38-126) U/L Total Protein (6.3-8.2) g/dL Albumin (3.5-5.0) g/dL Amylase (30-110) U/L Lipase (23-300) U/L Urine Color Light Yellow Urine Appearance Clear (Clear) Urine pH 8.0 (5.0-8.0) Ur Specific [place] 1.004 (1.001-1.035) Urine Protein Negative (Negative) Urine Glucose (UA) Negative (Negative) Urine Ketones Negative (Negative) Urine Blood Negative (Negative) Urine Nitrite Negative (Negative) Urine Bilirubin Negative (Negative) Urine Urobilinogen <2.0 (<2.0) mg/dL Ur Leukocyte Esterase Negative (Negative) - Radiology Data Radiology results: report reviewed, image reviewed Disposition Clinical Impression: Postoperative abdominal pain, Nausea Disposition: HOME SELF-CARE Condition: Good Instructions: Acute Nausea and Vomiting (ED) Additional Instructions: Take Zofran as needed for nausea. Please follow up with primary care provider or general surgeon in 1-2 days. If any new symptom arises or symptoms worsen, return to ER as soon as possible. Prescriptions: Ondansetron Odt [Zofran Odt] 4 mg PO Q8HR PRN #12 tab PRN Reason: Nausea Referrals: Payam Durant DO [Primary Care Provider] - 1-2 days Time of Disposition: 14:38
[2016-06-19 10:59] LABS: Basophils % (A) 1 %; CH 30.6; Eosinophils % (A) 1 %; HCT 41.3 % (34.0-46.0); HDW 2.33; HGB 13.7 gm/dL (11.4-16.0); Luc # (Auto) 0.14; Luc % (Auto) 2; Lymphocytes # (A) 1.2 k/uL (1.0-4.8); Lymphocytes % (A) 18 %; MCHC 33.2 g/dL (31.0-37.0); MCV 90.5 fL (80.0-100.0); Mean Platelet Volume 6.2; Monocytes # (A) 0.3 k/uL (0-1.0); Monocytes % (A) 5 %; Neutrophils # (A) 5.2 k/uL (1.3-7.7); Neutrophils % (A) 75 %; RBC 4.56 m/uL (3.80-5.40); RDW 13.1 % (11.5-15.5)
[2016-06-19 11:00] LABS: Appearance,Urine Clear (Clear); Bilirubin,Urine Negative (Negative); Glucose,Urine (UA) Negative (Negative); Ketones,Urine Negative (Negative); Leukocyte Esterase,Urine Negative (Negative); Nitrite,Urine Negative (Negative); Protein,Urine Negative (Negative); Specific Gravity,Urine 1.004 (1.001-1.035); UA Billing (MACRO vs. MICRO) CHEM; Urobilinogen,Urine <2.0 mg/dL (<2.0)
[2016-06-19] MEDS ORDERED: ONDANSETRON 4 MG/2 ML VIAL IVP STA (11:06)
[2016-06-19] MEDS ORDERED: FAMOTIDINE 20 MG/2 ML VIAL IV STA (11:07)
[2016-06-19 11:15] LABS: ALT 101 U/L (9-52); AST 55 U/L (14-36); Alkaline Phosphatase 76 U/L (38-126); Amylase 42 U/L (30-110); Anion Gap 10 mmol/L; Blood Urea Nitrogen 8 mg/dL (7-17); Carbon Dioxide 23 mmol/L (22-30); Chloride 109 mmol/L (98-107); Glucose 115 mg/dL (74-99); Non-African American GFR(MDRD) >60 (>60 ml/min/1.73 sqM); Potassium 4.1 mmol/L (3.5-5.1); Sodium 142 mmol/L (137-145); Total Bilirubin 1.1 mg/dL (0.2-1.3); Total Protein 7.3 g/dL (6.3-8.2)
[2016-06-19] MEDS ORDERED: RX INFO: IV CONTRAST WAS GIVEN 1 EACH MISC MISCELLANE PRN (11:52)
[2016-06-19] MEDS ORDERED: HYDROmorphone 1 MG/ML 1 ML SYRINGE IVP STA (12:05)
[2016-06-19] MEDS ORDERED: SODIUM CHLORIDE 0.9% 1,000 ML IV ONE (12:06)
--- NOTE | 2016-06-19 13:40 | CT ---
EXAMINATION TYPE: CT abdomen pelvis w con DATE OF EXAM: 06/19/2016 1:26 PM COMPARISON: 05/10/2016 HISTORY: 61-year-old female with pain, elevated temperature and vomiting since surgery 4 days ago for cholecystectomy and umbilical hernia repair. TECHNIQUE: Contiguous axial scanning of the abdomen and pelvis following administration of 100 ml Omn ipaque 300 IV contrast. Delayed images through the kidneys and coronal/sagittal reconstructions perf ormed. CT DLP: 787.7 mGycm Automated exposure control for dose reduction was used. FINDINGS: Heart is normal size without pericardial effusion. Small 5 mm peripheral left basilar pulmonary nodul e. No pleural effusion. No focal liver lesion. The bile duct is more prominent as compared to prior exam measuring 7 mm. Port al venous system is patent. Adrenal glands, kidneys, spleen, and pancreas appear within normal limits. No dilated small bowel, free fluid, or free air. There are some surgical material in the region of the cecum suggesting prior appendectomy. Scattered mild to moderate stool within the colon. No pericolonic inflammatory change. No mesenteric or retroperitoneal lymphadenopathy. Post surgical changes in the region of the umbilicus with thickening of the subcutaneous fat and some inflammatory fat stranding. No discrete fluid collection. Mild circumferential bladder wall thickening is noted. Uterus and small ovaries are seen. No abnormal fluid collection in the pelvis or pelvic lymphadenopathy. Bones: Some degenerative disc disease in the lower lumbar spine. No osseous destructive process. IMPRESSION: 1. INTERVAL REPAIR OF THE PATIENT'S UMBILICAL HERNIA. THERE IS SOME SOFT TISSUE THICKENING AND INFLAM MATORY FAT STRANDING IN THIS REGION. FINDINGS COULD BE RESIDUAL INFLAMMATION AFTER THE PATIENT'S SURG KADY OR COULD REPRESENT CELLULITIS. CLINICALLY CORRELATE. 2. STATUS POST CHOLECYSTECTOMY. THE BILE DUCT IS NOW MILDLY ENLARGED AND COULD RELATE TO POSTCHOLECYS TECTOMY STATUS. CORRELATE WITH BILIRUBIN AND ALKALINE PHOSPHATASE LEVELS. 3. MILD CIRCUMFERENTIAL BLADDER WALL THICKENING; CORRELATE TO EXCLUDE CYSTITIS.
[2016-06-19] MEDS ORDERED: ONDANSETRON 4 MG ODT STARTER PACK 2 TAB BTL PO STA (14:53)
[2016-06-19 14:56] VITALS: BP 170/96; PULSE 71; RESP 16; TEMP 98.7
== END 2016-06-19 14:56 | disposition home or self-care (01) ==
LOC: EC 09:40
DX: G89.18 Other acute postprocedural pain (principal); R10.9 Unspecified abdominal pain; R11.0 Nausea; K59.09 Other constipation; M19.90 Unspecified osteoarthritis, unspecified site; Z87.891 Personal history of nicotine dependence; Z79.899 Other long term (current) drug therapy; Z88.5 Allergy status to narcotic agent; Z91.09 Other allergy status, other than to drugs and biological substances; Z90.49 Acquired absence of other specified parts of digestive tract; Y83.8 Other surgical procedures as the cause of abnormal reaction of the patient, or of later complication, without mention of misadventure at the time of the procedure
CPT/HCPCS: 36415; 80053; 82150; 83690; 85025; 81003; 74177; 99285; 96374; 96375 ×2; 96361; J2405; J1170; Q9967; S0119

== ENCOUNTER → 2016-12-26 | Outpatient (CLI) | payer BC ==
--- NOTE | 2016-12-26 13:58 | XR ---
Right wrist HISTORY: Pain, trauma 3 views of the right breast, no comparisons The joint spaces and alignment are maintained. Small ossific density present dorsal to the wrist lali uring 3 to 4 mm. There is no dislocation. IMPRESSION: Suspect a small fracture triquetral bone.
== END | disposition home or self-care (01) ==
LOC: RADXRYALE 10:57
PROVIDERS: ATTEND Physician Assistant Medical
DX: M25.531 Pain in right wrist (principal)

== ENCOUNTER 2017-02-27 17:10 | Observation (INO) | payer BC ==
[2017-02-27] MEDS ORDERED: NITROGLYCERIN OINT 1 INCH/GM PACKET TOPICAL STA (17:43)
[2017-02-27] MEDS ORDERED: ONDANSETRON 4 MG/2 ML VIAL IVP STA (17:43)
[2017-02-27] MEDS ORDERED: ASPIRIN 81 MG PO STA (17:43)
[2017-02-27 17:52] LABS: Basophils # (A) 0.1 k/uL (0-0.2); Basophils % (A) 1 %; Eosinophils # (A) 0.2 k/uL (0-0.7); Eosinophils % (A) 3 %; HCT 43.7 % (34.0-46.0); HGB 14.1 gm/dL (11.4-16.0); Lymphocytes # (A) 1.9 k/uL (1.0-4.8); Lymphocytes % (A) 24 %; MCH 29.4 pg (25.0-35.0); MCHC 32.3 g/dL (31.0-37.0); Mean Platelet Volume 6.8; Monocytes # (A) 0.4 k/uL (0-1.0); Monocytes % (A) 6 %; Neutrophils % (A) 65 %; Platelet Count 350 k/uL (150-450); RDW 14.4 % (11.5-15.5); WBC 7.7 k/uL (3.8-10.6)
[2017-02-27 18:00] LABS: Partial Thromboplastin Time 22.7 sec (22.0-30.0); Prothrombin Time 10.1 sec (9.0-12.0)
--- NOTE | 2017-02-27 18:05 | XR ---
EXAMINATION TYPE: XR chest 2V DATE OF EXAM: 02/27/2017 COMPARISON: 05/07/2016 HISTORY: Shortness of breath. TECHNIQUE: Frontal and lateral views of the chest are obtained. FINDINGS: There is no focal air space opacity, pleural effusion, or pneumothorax seen. The cardiac silhouette size is within normal limits. The osseous structures are intact. Minimal multilevel dege nerative changes of the thoracic spine are noted. IMPRESSION: No acute cardiopulmonary process.
--- NOTE | 2017-02-27 18:07 | ED ---
Chest Pain HPI - General Chief Complaint: Chest Pain Stated Complaint: Chest pressure Time Seen by Provider: 02/27/17 17:37 Source: patient Mode of arrival: ambulatory Limitations: no limitations - History of Present Illness Initial Comments: This 61-year-old white female presents with a complaint of some chest pain. She describes it as a slight ache in her left chest which seems radiate into her back. She relates that it has been intermittent over the past 8 days. She has a hard time describing it. She has a difficult time telling me how frequently it occurs. It does not seem to be related to exertion and will occur at rest. She feels as though she has been fairly anxious recently and is unsure if it could be related to this. She has had occasional shortness of breath. She denies any leg pain or swelling. She denies any history of DVT or PE. She's never had any previous cardiac problems. She denies ever having a stress test or heart catheterization. No other complaints or modifying factors. - Related Data Home Medications Medication Instructions Recorded Confirmed Cholecalciferol (Vitamin D3) 10,000 unit PO DAILY 05/07/16 02/27/17 [Vitamin D3] Multivitamins, Thera [Multivitamin 1 tab PO DAILY 05/07/16 02/27/17 (formulary)] Citracal 1 tab PO DAILY 06/10/16 02/27/17 Famotidine [Pepcid] 20 mg PO BID PRN 06/10/16 02/27/17 L.acidoph,Paracasei, B.lactis 1 cap PO DAILY 06/10/16 02/27/17 [Probiotic] Naproxen Sodium [Aleve] 440 mg PO BID PRN 06/10/16 02/27/17 Fluticasone Nasal [place] [Flonase 2 spr EA NOSTRIL DAILY 02/27/17 02/27/17 Nasal [place]] Olopatadine HCl [Pataday] 1 drop BOTH EYES DAILY 02/27/17 02/27/17 Allergies Allergy/AdvReac Type Severity Reaction Status Date / Time morphine AdvReac Severe Nausea & Verified 02/27/17 18:28 Vomiting Review of Systems ROS Statement: Those systems with pertinent positive or pertinent negative responses have been documented in the HPI. ROS Other: All systems not noted in ROS Statement are negative. Past Medical History Past Medical History: GERD/Reflux, Osteoarthritis (OA) Additional Past Medical History / Comment(s): STATES PRE-CANCEROUS SKIN LESIONS REMOVED., UMBILICAL HERNIA, CHRONIC CONSTIPATION, ENVIRONMENTAL ALLERGIES., PT SCHEDULED FOR COLONOSCOPY 06/14/16. History of Any Multi-Drug Resistant Organisms: None Reported Past Surgical History: Appendectomy, Breast Surgery, Cholecystectomy, Hernia Repair, Joint Replacement, Orthopedic Surgery, Tubal Ligation Additional Past Surgical History / Comment(s): PRE-CANCEROUS SKIN LESIONS RIGHT NECK , CHEST AND RIGHT LEG, RIGHT KNEE ARTHROSCOPY, PARTIAL RIGHT KNEE, RAYA ACHILLIES TENDON REPAIR., RIGHT BREAST BX, COLONOSCOPY. Past Anesthesia/Blood Transfusion Reactions: No Reported Reaction Additional Past Anesthesia/Blood Transfusion Reaction / Comment(s): STATES PONV CAUSED FROM MORPHINE. Past Psychological History: Anxiety Smoking Status: Former smoker Past Alcohol Use History: Occasional Past Drug Use History: Marijuana - Past Family History Father Family Medical History: Cancer Additional Family Medical History / Comment(s): Father from melanoma Mother Family Medical History: Congestive Heart Failure (CHF), Deep Vein Thrombosis ( DVT), Rheumatoid Arthritis (RA) Additional Family Medical History / Comment(s): macular degeneration Brother(s) Family Medical History: Cancer Additional Family Medical History / Comment(s): Brother of melanoma at the age of 46yrs. General Exam - General Exam Comments Initial Comments: GENERAL: The patient is well nourished and well hydrated. VITAL SIGNS: Heart rate, blood pressure, respiratory rate reviewed as recorded in nurse's notes. EYES: Pupils are round and reactive. Extraocular movements are intact. No conjunctival / lid redness or swelling. ENT: No external evidence of injury, swelling, or ecchymosis. Airway is patent. Throat is clear. NECK: Nontender. No swelling or evidence of injury. No subcutaneous emphysema. Trachea is midline. No thyroid mass. HEART: Regular rate and rhythm. Good peripheral pulses. LUNGS/CHEST: Breath sounds clear and equal bilaterally. No rales, rhonchi, or wheezes. No ecchymosis, subcutaneous emphysema, or tenderness. ABDOMEN: Abdomen soft without tenderness. No palpable masses or organomegaly. No peritoneal signs. No abdominal wall swelling or ecchymosis. EXTREMITIES: No extremity tenderness. Normal muscle tone and function. No thoracolumbar tenderness. NEUROLOGIC: Sensation is grossly intact. Cranial nerve exam reveals face is symmetrical, tongue is midline, speech is clear. SKIN: No abrasions or ecchymosis is noted. No induration or masses noted. PSYCHIATRIC: Alert and oriented. Appropriate behavior and judgment but does appear mildly anxious at times. Limitations: no limitations Course Vital Signs 02/27/17 17:14 Temperature 98.0 F Pulse Rate 84 Respiratory 20 Rate Blood Pressure 142/83 O2 Sat by Pulse 98 Oximetry Chest Pain MDM - MDM The patient was seen and examined. All diagnostics were reviewed. An EKG was done and this does show a normal sinus rhythm at a rate of 67. There is no acute ST-T wave changes identified. The ME intervals 134, QS duration is 84, and the QTC intervals 443. The patient receives aspirin as well as Nitropaste. She is doing well on recheck. She had a chest x-ray done which does not show any acute processes. The laboratory is all essentially within normal limits are unremarkable. The possibility acute coronary syndrome certainly is plausible and it is felt associated require admission for further treatment. Case will be discussed with internal medicine shortly. Disposition Clinical Impression: Chest pain, Unstable angina pectoris, Hypertension, Anxiety Disposition: ADMITTED IP TO THIS HOSP Condition: Fair Time of Disposition: 18:48 Decision Date: 02/27/17 Decision Time: 18:48
[2017-02-27 18:08] LABS: ALT 66 U/L (9-52); AST 37 U/L (14-36); Albumin 4.6 g/dL (3.5-5.0); Alkaline Phosphatase 70 U/L (38-126); Anion Gap 14 mmol/L; Blood Urea Nitrogen 13 mg/dL (7-17); Calcium 10.1 mg/dL (8.4-10.2); Carbon Dioxide 25 mmol/L (22-30); Chloride 104 mmol/L (98-107); Glucose 103 mg/dL (74-99); Magnesium 1.8 mg/dL (1.6-2.3); Sodium 143 mmol/L (137-145); Total Bilirubin 0.8 mg/dL (0.2-1.3); Total Protein 7.7 g/dL (6.3-8.2)
[2017-02-27 18:11] LABS: Creatine Kinase 53 U/L (30-135)
[2017-02-27 18:24] LABS: Creatine Kinase MB 0.4 ng/mL (0.0-2.4); Troponin I <0.012 ng/mL (0.000-0.034)
[2017-02-27] MEDS ORDERED: NITROGLYCERIN SL TABS 0.4 MG TAB SUBLINGUAL PRN (18:48)
[2017-02-27] MEDS ORDERED: HEPARIN SODIUM,PORCINE 5,000 UNIT/ML 1 ML VIAL IV ONE (18:48)
[2017-02-27] MEDS ORDERED: HEPARIN SODIUM,PORCINE 5,000 UNIT/ML 1 ML VIAL IV PRN (18:48)
[2017-02-27] MEDS ORDERED: ACETAMINOPHEN TAB 325 MG TAB PO PRN (18:48)
[2017-02-27] MEDS ORDERED: FAMOTIDINE 20 MG TAB PO PRN (18:51)
[2017-02-27] MEDS ORDERED: NAPROXEN 250 MG TAB PO PRN (18:51)
[2017-02-27] MEDS ORDERED: HEPARIN SOD,PORK IN 0.45% NACL 25,000 UNIT in 0.45% NACL 1 500ML.BAG IV SCH (19:00)
[2017-02-27] MEDS: METOPROLOL TARTRATE 25 MG TAB PO SCH (21:30)
[2017-02-27] MEDS ORDERED: LORazepam 0.5 MG TAB PO STA (21:48)
[2017-02-27] MEDS ORDERED: HYDROcodone/APAP 5-325MG 1 EACH TAB PO PRN (21:48)
[2017-02-28 02:01] LABS: Creatine Kinase 45 U/L (30-135)
[2017-02-28 02:15] LABS: Creatine Kinase MB 0.3 ng/mL (0.0-2.4); Troponin I <0.012 ng/mL (0.000-0.034)
[2017-02-28 05:35] VITALS: RESP 18
[2017-02-28 06:34] LABS: Mean Platelet Volume 7.1; Platelet Count 328 k/uL (150-450)
[2017-02-28 06:57] LABS: ALT 64 U/L (9-52); AST 36 U/L (14-36); Albumin 3.8 g/dL (3.5-5.0); Alkaline Phosphatase 56 U/L (38-126); Anion Gap 10 mmol/L; Blood Urea Nitrogen 15 mg/dL (7-17); Carbon Dioxide 27 mmol/L (22-30); Chloride 104 mmol/L (98-107); Cholesterol 194 mg/dL (<200); Creatine Kinase 40 U/L (30-135); Glucose 98 mg/dL (74-99); HDL Cholesterol 46 mg/dL (40-60); LDL Cholesterol,Calculated 128 mg/dL (0-99); Potassium 4.3 mmol/L (3.5-5.1); Sodium 141 mmol/L (137-145); Total Bilirubin 0.8 mg/dL (0.2-1.3); Total Protein 6.3 g/dL (6.3-8.2); Triglycerides 102 mg/dL (<150)
[2017-02-28 07:08] LABS: Creatine Kinase MB 0.3 ng/mL (0.0-2.4); Troponin I <0.012 ng/mL (0.000-0.034)
--- NOTE | 2017-02-28 08:44 | HP ---
HISTORY AND PHYSICAL DATE OF SERVICE: 02/27/2017 CHIEF COMPLAINT: Back pain and chest pain. HISTORY OF PRESENT ILLNESS: This is a 61-year-old woman with a past medical history of multiple medical problems including GERD, history of DJD, history of cholecystectomy, history of appendectomy, history of anxiety, being followed by Dr. Durant in the outpatient setting, who is complaining of back pain which was deep ache in character for the last several days, almost 1 week. The pain is also felt in the anterior part of the chest, also. Patient has some cardiac workup about a year ago which was negative apparently and because of increasing complaints, patient came to [facility] and admitted for evaluation and treatment. Patient also complains of minimal anxiety, also. There is no history of fever, rigors, headache, loss of consciousness, seizures. Initial troponins are negative. PAST MEDICAL HISTORY: History of GERD, DJD, history of cholecystectomy, history of appendectomy, history of anxiety. MEDICATIONS: Prior to admission include: 1. Pepcid 20 mg b.i.d. p.r.n. 2. Flonase 2 sprays daily. 3. Pataday 1 drop both eyes daily. 4. Aleve 440 mg b.i.d. p.r.n. 5. Multivitamin 1 p.o. daily. 6. Probiotic 1 p.o. daily. 7. Citracal 1 capsule p.o. daily. 8. Vitamin D3 ten thousand daily. ALLERGIES: MORPHINE. FAMILY HISTORY: History of cancer in the family and melanoma. SOCIAL HISTORY: History of previous smoking THC, history of occasional alcohol. REVIEW OF SYSTEMS: ENT: No diminished vision. CARDIOVASCULAR: As mentioned earlier. RESPIRATORY: As mentioned earlier. GI: As mentioned earlier. : No dysuria. NERVOUS SYSTEM: No numbness, weakness. ALLERGY/IMMUNOLOGY: No asthma or hayfever. MUSCULOSKELETAL: As mentioned earlier. HEMATOLOGY/ONCOLOGY: No history of anemia. ENDOCRINE: No history of diabetes or hypothyroidism. CONSTITUTIONAL: As mentioned earlier. DERMATOLOGY: Negative. RHEUMATOLOGY: As mentioned earlier. PSYCHIATRY: As mentioned earlier. PHYSICAL EXAMINATION: Alert and oriented x3. Pulse 72, blood pressure 178/94, respiration 18, temp 98.1, pulse ox 98% on 2 L. HEENT: Conjunctivae normal. Oral mucosa moist. Neck is no jugular venous distention. No lymph node enlargement. CARDIOVASCULAR: S1, S2. RESPIRATORY: Breath sounds diminished at the bases, no rhonchi, no crackles. ABDOMEN: Soft, nontender. No mass palpable. No hepatosplenomegaly. No ascites. Nontender. LEGS: No edema, no swelling. NERVOUS SYSTEM: Higher functions as mentioned earlier, moves all 4 limbs, no focal motor deficits. LYMPHATICS: No lymph node enlargement in the neck or axillae. SKIN: No ulcer, rash or bleeding. LABS: At this time shows CBC within normal limits. Glucose 103, AST, ALT 37 and 63. ASSESSMENT: 1. Chest pain, back pain for evaluation, rule out coronary artery disease. 2. Possibly musculoskeletal pain. 3. Increased AST, ALT, possibly mild hepatitis. 4. History of cholecystectomy. 5. History of anxiety. 6. History of degenerative joint disease. 7. History of appendectomy. 8. Remote history of nicotine dependence. RECOMMENDATIONS: This is a 61-year-old woman who presented with multiple complex medical issues. At this time, I recommend to continue current management and symptomatic treatment. Otherwise, at this time rule out myocardial infarction, Cardiology evaluation. Guarded prognosis. Multiple complex medical issues and further recommendations to follow. MMODL / IJN: [id number] /
[2017-02-28] MEDS ORDERED: ASPIRIN 325 MG TAB PO SCH (09:00)
[2017-02-28] MEDS ORDERED: CALCIUM CARB-VIT D 500MG-200UN 1 EACH TAB PO SCH (09:00)
[2017-02-28] MEDS ORDERED: FLUTICASONE 50MCG/SPRAY NASAL 16GM EA NOSTRIL SCH (09:00)
[2017-02-28] MEDS ORDERED: CHOLECALCIFEROL 1,000 UNIT TAB PO SCH (09:00)
[2017-02-28] MEDS ORDERED: LACTOBACILLUS ACIDOPH & BULGAR 1 EACH PACKET PO SCH (09:00)
[2017-02-28] MEDS ORDERED: KETOTIFEN 0.025% OPHTH DROPS 5 ML BTL BOTH EYES SCH (09:00)
[2017-02-28] MEDS ORDERED: MULTIVITAMINS, THERA 1 EACH TAB PO SCH (09:00)
[2017-02-28] MEDS ORDERED: DOBUTamine DRIP for NUC MED 500 MG in DEXTROSE/WATER 1 250ML.BAG IV ONE (10:12)
--- NOTE | 2017-02-28 11:13 | ECHOF ---
Referral Reason:cp MEASUREMENTS -------- HEIGHT: 157.5 cm WEIGHT: 74.8 kg BP: 110/68 RVIDd: 3.0 cm (< 3.3) IVSd: 0.9 cm (0.6 - 1.1) LVIDd: 3.3 cm (3.9 - 5.3) LVPWd: 0.9 cm (0.6 - 1.1) IVSs: 1.3 cm LVIDs: 2.2 cm LVPWs: 1.4 cm LA Diam: 3.1 cm (2.7 - 3.8) LAESV Index (A-L): 12.93 ml/m Ao Diam: 2.4 cm (2.0 - 3.7) AV Cusp: 1.7 cm (1.5 - 2.6) MV EXCURSION: 6.486 mm (> 18.000) MV EF SLOPE: 75 mm/s (70 - 150) EPSS: 0.8 cm RAP: 5.00 mmHg RVSP: 22.12 mmHg FINDINGS -------- Sinus rhythm. This was a technically good study. The left ventricular size is normal. Left ventricular wall thickness is normal. Overall left vent ricular systolic function is normal with, an EF between 60 - 65 %. The right ventricle is normal in size. Normal LA size by volume 22+/-6 ml/m2. The right atrium is normal in size. The aortic valve is trileaflet and appears structurally normal. The mitral valve is normal. Mild tricuspid regurgitation present. Right ventricular systolic pressure is normal at < 35 mmHg. Trace/mild (physiologic) pulmonic regurgitation. The aortic root size is normal. Normal inferior vena cava with normal inspiratory collapse consistent with estimated right atrial pre ssure of 5 mmHg. There is no pericardial effusion. CONCLUSIONS -------- 1. Sinus rhythm. 2. This was a technically good study. 3. The left ventricular size is normal. 4. Left ventricular wall thickness is normal. 5. Overall left ventricular systolic function is normal with, an EF between 60 - 65 %. 6. The right ventricle is normal in size. 7. Normal LA size by volume 22+/-6 ml/m2. 8. The right atrium is normal in size. 9. The aortic valve is trileaflet and appears structurally normal. 10. The mitral valve is normal. 11. Mild tricuspid regurgitation present. 12. Right ventricular systolic pressure is normal at < 35 mmHg. 13. Trace/mild (physiologic) pulmonic regurgitation. 14. The aortic root size is normal. 15. Normal inferior vena cava with normal inspiratory collapse consistent with estimated right atrial pressure of 5 mmHg. 16. There is no pericardial effusion. PASTER SUPERVISOR: Estelita Israel RDCS
[2017-02-28] MEDS ORDERED: ATROPINE SULFATE 0.1 MG/ML 10ML SYRINGE ONE (11:30)
[2017-02-28 12:21] VITALS: BP 140/79; PULSE 81; TEMP 98.2
--- NOTE | 2017-02-28 12:33 | P.CRDCN ---
History of Present Illness Consult date: 02/28/17 History of present illness: Mrs. Ball is a pleasant 61-year-old female with past medical history significant for gastroesophageal reflux disease, anxiety and former tobacco use. She denies history of coronary artery disease and has never seen a doctor of nurse anesthesia practice for any reason. We have been asked to see her in consultation for complaints of chest and back pain. She states sine around New Years Angelita she has been having some pain in the middle of her back between the shoulder blades that is tight and seemed worse with movement. This persisted for a week or so with no improvement. Initially she had no associated symptoms. Then over the last couple days the pain began to radiate around to anterior chest wall. It was in the precordial region and was associated with mild shortness of breath with exertion. She denies palpitations, dizziness, nausea, vomiting or diaphoresis. The pain is intermittent in nature and described as tight. There are no aggravating or alleviating factors she can clearly specify. The pain in the back or the chest is not present at the time of my exam and is non- reproducible. EKG on arrival sinus mechanism with no acute ST or T-wave abnormalities. Chest xray is negative for an acute cardiopulmonary process. Laboratory data reviewed, cardiac enzymes negative x3, potassium 4.3, magnesium 1.8, creatinine 0.8, hemoglobin 14.1, platelets 328, LDL 128, HDL 46. She takes no cardiac medications. Review of Systems At the time of my exam: CONSTITUTIONAL: Denies fever. Denies chills. EYES: Denies blurred vision. Denies vision changes. Denies eye pain. EARS, NOSE, MOUTH & THROAT: Denies headache. Denies sore throat. Denies ear pain. CARDIOVASCULAR: Denies chest pain. Denies shortness of breath. Denies orthopnea. Denies PND. Denies palpitations. RESPIRATORY: Denies cough. GASTROINTESTINAL: Denies abdominal pain. Denies diarrhea. Denies constipation. Denies nausea. Denies vomiting. MUSCULOSKELETAL: Denies myalgias. INTEGUMENTARY: Denies pruitis. Denies rash. NEUROLOGIC: Denies numbness. Denies tingling. Denies weakness. PSYCHIATRIC: Denies anxiety. Denies depression. ENDOCRINE: Denies fatigue. Denies weight change. Denies polydipsia. Denies polyurina. GENITOURINARY: Denies burning, hematuria or urgency with micturation. HEMATOLOGIC: Denies history of anemia. Denies bleeding. Past Medical History Past Medical History: GERD/Reflux, Osteoarthritis (OA) Additional Past Medical History / Comment(s): STATES PRE-CANCEROUS SKIN LESIONS REMOVED., UMBILICAL HERNIA, CHRONIC CONSTIPATION, ENVIRONMENTAL ALLERGIES-gets allery shot weekly, anxiety History of Any Multi-Drug Resistant Organisms: None Reported Past Surgical History: Appendectomy, Breast Surgery, Cholecystectomy, Hernia Repair, Joint Replacement, Orthopedic Surgery, Tubal Ligation Additional Past Surgical History / Comment(s): PRE-CANCEROUS SKIN LESIONS RIGHT NECK , CHEST AND RIGHT LEG, RIGHT KNEE ARTHROSCOPY, PARTIAL RIGHT KNEE, RAYA ACHILLIES TENDON REPAIR., RIGHT BREAST BX-neg, COLONOSCOPY. Past Anesthesia/Blood Transfusion Reactions: No Reported Reaction Additional Past Anesthesia/Blood Transfusion Reaction / Comment(s): STATES PONV CAUSED FROM MORPHINE. Smoking Status: Former smoker - Past Family History Father Family Medical History: Cancer Additional Family Medical History / Comment(s): Father from melanoma Mother Family Medical History: Congestive Heart Failure (CHF), Deep Vein Thrombosis ( DVT), Rheumatoid Arthritis (RA) Additional Family Medical History / Comment(s): macular degeneration Brother(s) Family Medical History: Cancer Additional Family Medical History / Comment(s): Brother of melanoma at the age of 46yrs. Medications and Allergies Home Medications Medication Instructions Recorded Confirmed Type Cholecalciferol (Vitamin D3) 10,000 unit PO DAILY 05/07/16 02/27/17 History [Vitamin D3] Multivitamins, Thera [Multivitamin 1 tab PO DAILY 05/07/16 02/27/17 History (formulary)] Citracal 1 tab PO DAILY 06/10/16 02/27/17 History Famotidine [Pepcid] 20 mg PO BID PRN 06/10/16 02/27/17 History L.acidoph,Paracasei, B.lactis 1 cap PO DAILY 06/10/16 02/27/17 History [Probiotic] Naproxen Sodium [Aleve] 440 mg PO BID PRN 06/10/16 02/27/17 History Fluticasone Nasal [place] [Flonase 2 spr EA NOSTRIL DAILY 02/27/17 02/27/17 History Nasal [place]] Olopatadine HCl [Pataday] 1 drop BOTH EYES DAILY 02/27/17 02/27/17 History Allergies Allergy/AdvReac Type Severity Reaction Status Date / Time morphine AdvReac Severe Nausea & Verified 02/27/17 18:28 Vomiting Physical Exam Vitals: Vital Signs Temp Pulse Pulse Resp BP BP BP 02/28/17 12:00 98.2 F 81 18 140/79 02/28/17 08:00 98.1 F 58 L 18 132/82 02/28/17 04:00 97.9 F 59 L 18 110/68 02/28/17 00:00 98 F 54 L 16 142/84 02/27/17 20:00 98.1 F 72 18 178/94 02/27/17 19:02 98.1 F 74 18 143/89 02/27/17 18:54 83 16 147/92 02/27/17 17:14 98.0 F 84 20 142/83 Pulse Ox 02/28/17 12:00 96 02/28/17 08:00 96 02/28/17 04:00 99 02/28/17 00:00 98 02/27/17 20:00 98 02/27/17 19:02 97 02/27/17 18:54 95 02/27/17 17:14 98 Intake and Output 02/27/17 02/28/17 02/28/17 22:59 06:59 14:59 Intake Total 132.006 Balance 132.006 Intake: Intake, IV Titration 132.006 Amount Heparin Sod,Pork in 0.45% 132.006 NaCl 25,000 unit In 0.45 % NaCl 1 500ml.bag @ 12 UNITS/KG/HR 17.96 mls/hr IV .Q24H [facility] Rx#: [id number] Other: Voiding Method Toilet # Voids 1 Weight 74.843 kg Blood pressure 132/82 heart rate 58 afebrile GENERAL: This is a 61-year-old female in no apparent distress at the time of my examination. HEENT: Head is atraumatic, normocephalic. Pupils are equal, round. Sclerae anicteric. Conjunctivae are clear. Mucous membranes of the mouth are moist. Neck is supple. There is no jugular venous distention. No carotid bruit is heard. LUNGS: Clear to auscultation no wheezes, rales or rhonchi. No chest wall tenderness is noted on palpation or with deep breathing. HEART: Regular rate and rhythm without murmurs, rubs or gallops. S1 and S2 heard. ABDOMEN: Soft, nontender. Bowel sounds are heard. No organomegaly noted. EXTREMITIES: 2+ peripheral pulses with no evidence of peripheral edema and no calf tenderness noted. NEUROLOGIC: Patient is awake, alert and oriented x3. Results 02/28/17 05:48 02/28/17 05:48 Cardiac Enzymes 02/27/17 02/27/17 02/28/17 Range/Units 17:40 17:40 00:40 AST 37 H (14-36) U/L CK-MB (CK-2) 0.4 0.3 (0.0-2.4) ng/mL Troponin I <0.012 <0.012 (0.000-0.034) ng/mL 02/28/17 02/28/17 Range/Units 05:48 05:48 AST 36 (14-36) U/L CK-MB (CK-2) 0.3 (0.0-2.4) ng/mL Troponin I <0.012 (0.000-0.034) ng/mL Coagulation 02/27/17 02/28/17 02/28/17 Range/Units 17:40 00:40 09:11 PT 10.1 (9.0-12.0) sec APTT 22.7 44.5 H 51.2 H (22.0-30.0) sec Lipids 02/28/17 Range/Units 05:48 Triglycerides 102 (<150) mg/dL Cholesterol 194 (<200) mg/dL HDL Cholesterol 46 (40-60) mg/dL CBC 02/27/17 02/28/17 Range/Units 17:40 05:48 WBC 7.7 (3.8-10.6) k/uL RBC 4.80 (3.80-5.40) m/uL Hgb 14.1 (11.4-16.0) gm/dL Hct 43.7 (34.0-46.0) % Plt Count 350 328 (150-450) k/uL Comprehensive Metabolic Panel 02/27/17 02/28/17 Range/Units 17:40 05:48 Sodium 143 141 (137-145) mmol/L Potassium 4.0 4.3 (3.5-5.1) mmol/L Chloride 104 104 (98-107) mmol/L Carbon Dioxide 25 27 (22-30) mmol/L BUN 13 15 (7-17) mg/dL Creatinine 0.70 0.80 (0.52-1.04) mg/dL Glucose 103 H 98 (74-99) mg/dL Calcium 10.1 9.0 (8.4-10.2) mg/dL AST 37 H 36 (14-36) U/L ALT 66 H 64 H (9-52) U/L Alkaline Phosphatase 70 56 (38-126) U/L Total Protein 7.7 6.3 (6.3-8.2) g/dL Albumin 4.6 3.8 (3.5-5.0) g/dL Current Medications Generic Name Dose Route Start Last Admin Trade Name Freq PRN Reason Stop Dose Admin Acetaminophen 650 mg 02/27/17 18:48 02/28/17 08:46 Tylenol Tab PO 650 mg Q4HR PRN Administration Pain Hydrocodone Bitart/Acetaminophen 1 each 02/27/17 21:48 02/27/17 21:59 [place] 5-325 PO 1 each Q6HR PRN Administration Pain Aspirin 325 mg 02/28/17 09:00 02/28/17 09:37 Aspirin PO Not Given DAILY [facility] Calcium Carbonate 1 each 02/28/17 09:00 02/28/17 09:37 Oscal 500+D PO 1 each DAILY [facility] Administration Cholecalciferol 10,000 unit 02/28/17 09:00 02/28/17 09:37 Vitamin D3 PO 1,000 unit DAILY K[facility]ST[facility] Administration Famotidine 20 mg 02/27/17 18:51 Pepcid PO BID PRN Heartburn Fluticasone Propionate 2 spray 02/28/17 09:00 02/28/17 09:37 Flonase Nasal [place] EA NOSTRIL Not Given DAILY [facility] Heparin Sodium (Porcine) 0 unit 02/27/17 18:48 Heparin IV Q6HR PRN Low PTT Protocol Heparin Sodium/Sodium Chloride 500 mls @ 17.96 mls/hr 02/27/17 19:00 02:49 25,000 unit/ Sodium Chloride IV 14 units/kg/hr .Q24H [facility] 20.95 mls/hr Protocol Titration 12 UNITS/KG/HR Ketotifen Fumarate 1 drops 01/09/18 09:00 02/28/17 09:37 Zaditor BOTH EYES Not Given BID K[facility]ST[facility] Lactobacillus Acidoph/Bulgaricus 1 each 02/28/17 09:00 Lactinex PO DAILY [facility] Metoprolol Tartrate 25 mg 02/27/17 21:00 02/27/17 21:30 Lopressor PO 25 mg BID KRISTEN Administration Multivitamins 1 each 02/28/17 09:00 02/28/17 09:37 Theragran PO 1 each DAILY [facility]ST[facility] Administration Naproxen 500 mg 02/27/17 18:51 Naprosyn PO BID PRN Pain Nitroglycerin 0.4 mg 02/27/17 18:48 Nitrostat SUBLINGUAL Q5M PRN Chest Pain Intake and Output 02/27/17 02/28/17 02/28/17 22:59 06:59 14:59 Intake Total 132.006 Balance 132.006 Intake: Intake, IV Titration 132.006 Amount Heparin Sod,Pork in 0.45% 132.006 NaCl 25,000 unit In 0.45 % NaCl 1 500ml.bag @ 12 UNITS/KG/HR 17.96 mls/hr IV .Q24H [facility] Rx#: [id number] Other: Voiding Method Toilet # Voids 1 Weight 74.843 kg 02/28/17 05:48 02/28/17 05:48 Assessment and Plan Assessment: ASSESSMENT 1. Precordial chest pain 2. Hyperlipidemia PLAN Obtain 2-D echocardiogram and Doppler study to assess cardiac structure and function. Most recent echocardiogram was performed in April 2016 revealed preserved LV function with ejection fraction 60-65% with mild tricuspid regurg. Perform dobutamine stress echocardiogram to evaluate for stress induced cardiac ischemia. Recommend lifestyle modification for lowering of LDL. From a cardiac perspective if above's diagnostic testing is negative the patient is stable she can follow-up with her primary care physician. Thank you kindly for this consultation. The above impression and plan of care have been discussed and directed by the signing physician. Charity Juarez, nurse practitioner, acting as scribe for signing physician.
--- NOTE | 2017-02-28 12:47 | ECHOS ---
STRESS ECHOCARDIOGRAM INDICATIONS: Chest pain. BASELINE HEART RATE: 62 BASELINE BLOOD PRESSURE: 103/66 MAXIMUM HEART RATE: 144 MAXIMUM BLOOD PRESSURE: 171/45 85% MPHR: 136 100% MPHR: 160 MAXIMUM STAGE REACHED: 4 TOTAL EXERCISE TIME: 12:00. CLINICAL INFORMATION: Baseline EKG shows sinus rhythm, normal axis, normal intervals. The patient was given intravenous dobutamine over a period of 12 minutes as per protocol. Patient did not attain target heart rate, hence received atropine, following which attained 90% of predicted maximal heart rate without chest pain or ST-segment depression. Baseline echo shows normal left ventricular size and systolic function with an ejection fraction of 60%. The baseline wall motion appears normal. Post dobutamine infusion, there is normal hyperdynamic response of all segments of myocardium noted. CONCLUSION: 1. Negative stress test by EKG criteria. 2. Negative dobutamine echo. RODRIGO / NOAH: [id number] /
[2017-02-28] MEDS: METOPROLOL TARTRATE 25 MG TAB PO SCH (13:31)
[2017-02-28 14:23] VITALS: BMI 30.2
--- NOTE | 2017-02-28 14:50 | P.DS ---
Providers Date of admission: 02/27/17 18:48 Attending physician: Osman Vidal Consults: 02/27/17 18:48 Consult Physician Urgent Consulting Provider: Zayra Spence Consult Reason/Comments: cp Do you want consulting provider notified?: Yes [facility] Course: Patient was admitted for chest pain rule out acute coronary syndromes patient underwent stress test which was negative for any inducible ischemia patient appears to have anxiety disorder patient has an appointment with Dr. Salinas tomorrow and patient will be discharged in stable medical condition to home. PHYSICAL EXAMINATION: GENERAL: The patient is alert and oriented x3, not in any acute distress. Well developed, well nourished. HEENT: Pupils are round and equally reacting to light. EOMI. No scleral icterus. No conjunctival pallor. Normocephalic, atraumatic. No pharyngeal erythema. No thyromegaly. CARDIOVASCULAR: S1 and S2 present. No murmurs, rubs, or gallops. PULMONARY: Chest is clear to auscultation, no wheezing or crackles. ABDOMEN: Soft, nontender, nondistended, normoactive bowel sounds. No palpable organomegaly. MUSCULOSKELETAL: No joint swelling or deformity. EXTREMITIES: No cyanosis, clubbing, or pedal edema. NEUROLOGICAL: Gross neurological examination did not reveal any focal deficits. SKIN: No rashes. Patient Condition at Discharge: Fair Plan - Discharge Summary Discharge Rx Participant: No New Discharge Prescriptions: No Action Multivitamins, Thera [Multivitamin (formulary)] 1 tab PO DAILY Cholecalciferol (Vitamin D3) [Vitamin D3] 10,000 unit PO DAILY Famotidine [Pepcid] 20 mg PO BID PRN PRN Reason: Heartburn Naproxen Sodium [Aleve] 440 mg PO BID PRN PRN Reason: Pain L.acidoph,Paracasei, B.lactis [Probiotic] 1 cap PO DAILY Citracal 1 tab PO DAILY Fluticasone Nasal [place] [Flonase Nasal [place]] 2 spr EA NOSTRIL DAILY Olopatadine HCl [Pataday] 1 drop BOTH EYES DAILY Discharge Medication List Cholecalciferol (Vitamin D3) [Vitamin D3] 10,000 unit PO DAILY 05/07/16 [History ] Multivitamins, Thera [Multivitamin (formulary)] 1 tab PO DAILY 05/07/16 [History ] Citracal 1 tab PO DAILY 06/10/16 [History] Famotidine [Pepcid] 20 mg PO BID PRN 06/10/16 [History] L.acidoph,Paracasei, B.lactis [Probiotic] 1 cap PO DAILY 06/10/16 [History] Naproxen Sodium [Aleve] 440 mg PO BID PRN 06/10/16 [History] Fluticasone Nasal [place] [Flonase Nasal [place]] 2 spr EA NOSTRIL DAILY 02/27/17 [ History] Olopatadine HCl [Pataday] 1 drop BOTH EYES DAILY 02/27/17 [History] Follow up Appointment(s)/Referral(s): Payam Durant DO [Primary Care Provider] - 3 Days Patient Instructions/Handouts: Chest Pain (GEN), Anxiety (GEN) Discharge Disposition: HOME SELF-CARE
== END 2017-02-28 14:57 | disposition home or self-care (01) ==
LOC: EC 17:10 → 3OBS 18:48
PROVIDERS: ADMIT Hospitalist; ATTEND Hospitalist
DX: R07.2 Precordial pain (principal); K21.9 Gastro-esophageal reflux disease without esophagitis; M19.90 Unspecified osteoarthritis, unspecified site; F41.9 Anxiety disorder, unspecified; M54.9 Dorsalgia, unspecified; E78.5 Hyperlipidemia, unspecified; K59.09 Other constipation; J30.9 Allergic rhinitis, unspecified; I10 Essential (primary) hypertension; Z90.49 Acquired absence of other specified parts of digestive tract; Z79.899 Other long term (current) drug therapy; Z79.51 Long term (current) use of inhaled steroids; Z88.5 Allergy status to narcotic agent; Z87.891 Personal history of nicotine dependence; Z82.49 Family history of ischemic heart disease and other diseases of the circulatory system
CPT/HCPCS: 96365; 96366 ×2; 96376; 96375; 99285; 36415; 93005; 93017; 93306; 93350; 80061; 80053 ×2; 82550 ×2; 82553 ×2; 83735; 84484 ×2; 85025; 85049; 85610; 85730 ×2; 71046; G0378 ×2; J1250; J1644 ×2; J2405; J0461

== ENCOUNTER → 2017-04-06 | Outpatient (CLI) | payer BC ==
--- NOTE | 2017-04-10 09:58 | MM ---
Reason for exam: screening (asymptomatic). Last mammogram was performed 1 year and 3 months ago. History: Patient is postmenopausal and has history of other cancer at age 55. Benign right US cyst aspiration of the right breast, May 11, 2007. Benign US right guided mammotome of the right breast, May 11, 2007. Physical Findings: A clinical breast exam by your physician is recommended on an annual basis and results should be correlated with mammographic findings. MG Screening Mammo w CAD Bilateral CC and MLO view(s) were taken. Prior study comparison: December 24, 2015, bilateral MG screening mammo w CAD. August 06, 2014, bilateral MG screening mammo w CAD. There are scattered fibroglandular densities. Previous mammotome biopsy in the right breast. No significant changes when compared with prior studies. ASSESSMENT: Benign, BI-RAD 2 RECOMMENDATION: Routine screening mammogram of both breasts in 1 year.
== END | disposition home or self-care (01) ==
LOC: RADMAMWWP 13:21
PROVIDERS: ATTEND Obstetrics & Gynecology
DX: Z12.31 Encounter for screening mammogram for malignant neoplasm of breast (principal)
CPT/HCPCS: 77067

== ENCOUNTER → 2017-05-15 | Outpatient (CLI) | payer BC ==
--- NOTE | 2017-05-15 11:48 | XR ---
2 view abdomen HISTORY: Generalized abdomen pain 2 views of the abdomen submitted Comparison CT abdomen pelvis 05/23/2016 There is a spinal curvature. Surgical clips are present in the right lower quadrant and pelvis. Lung bases are clear. No evident pneumoperitoneum or bowel obstruction. IMPRESSION: Nonobstructive bowel gas pattern.
== END | disposition home or self-care (01) ==
LOC: RADXRYALE 08:58
PROVIDERS: ATTEND Physician Assistant Medical
DX: R10.84 Generalized abdominal pain (principal)
CPT/HCPCS: 74019

== ENCOUNTER → 2018-04-24 | Outpatient (CLI) | payer BC ==
--- NOTE | 2018-04-24 13:21 | XR ---
Left knee HISTORY: Trauma and pain 3 views of the left knee There is remodeling of the medial compartment with some mild joint space loss, mild marginal spurring . Alignment and bone mineralization are maintained. No evident joint effusion. IMPRESSION: No fracture or dislocation. Osteoarthritis.
== END | disposition home or self-care (01) ==
LOC: RADXRYALE 11:17
PROVIDERS: ATTEND Physician Assistant Medical
DX: M17.12 Unilateral primary osteoarthritis, left knee (principal)

== ENCOUNTER → 2018-06-28 | Outpatient (CLI) | payer BC ==
--- NOTE | 2018-06-29 12:19 | MM ---
Reason for exam: screening (asymptomatic). Last mammogram was performed 1 year and 3 months ago. History: Patient is postmenopausal and has history of other cancer at age 55. Benign right US cyst aspiration of the right breast, May 11, 2007. Benign US right guided mammotome of the right breast, May 11, 2007. Physical Findings: A clinical breast exam by your physician is recommended on an annual basis and results should be correlated with mammographic findings. MG Screening Mammo w CAD Bilateral CC and MLO view(s) were taken. Prior study comparison: April 06, 2017, bilateral MG screening mammo w CAD. December 24, 2015, bilateral MG screening mammo w CAD. The breast tissue is heterogeneously dense. This may lower the sensitivity of mammography. There is no discrete abnormality. No significant changes when compared with prior studies. ASSESSMENT: Negative, BI-RAD 1 RECOMMENDATION: Routine screening mammogram of both breasts in 1 year.
== END | disposition home or self-care (01) ==
LOC: RADMAMWWP 16:32
PROVIDERS: ATTEND Obstetrics & Gynecology
DX: Z12.31 Encounter for screening mammogram for malignant neoplasm of breast (principal)
CPT/HCPCS: 77067

== ENCOUNTER → 2018-09-26 | Outpatient (CLI) | payer BC ==
--- NOTE | 2018-09-26 16:01 | CT ---
EXAMINATION TYPE: CT abdomen pelvis wo con DATE OF EXAM: 09/26/2018 COMPARISON: 06/19/2016 INDICATION: Pelvic pain with microscopic hematuria DLP: 577.9 mGycm, Automated exposure control for dose reduction was used. CONTRAST: 0 mL of Isovue 300. Study performed without Oral Contrast TECHNIQUE: Axial images were obtained from above the diaphragm to the pubic rami in the axial plane a t 5 mm thick sections. Reconstructed images are reviewed on the computer in the coronal plane. FINDINGS: Limited CT sections are obtained the lung bases. The lung bases are clear. CT ABDOMEN: Liver: Mild fatty filtration of liver is present. Spleen: Normal Pancreas: Normal Adrenal glands: The adrenal glands are normal. Gallbladder: Normal Kidneys: No masses are evident. No hydronephrosis is present. No cysts are present. No renal stone s are identified. Aorta: Vascular calcification is within the aorta. Inferior vena cava: Normal. CT PELVIS: Loops of bowel within the abdomen and pelvis are normal. Scattered diverticuli are throughout the si gmoid colon. There is some fecal debris throughout the colon. There are loops of bowel which are in completely distended or lack oral contrast limiting their evaluation. Appendix: Not identified. Surgical clips are present suggesting prior appendectomy. Urinary bladder: Normal. On a single image there is a very faint increased density. A 1 mm calcificat ion at the left ureterovesical junction is not entirely excluded. This could be artifact. Genitourinary structures: Uterus is normal. Adnexal regions are clear. Osseous structures: No suspicious lytic or sclerotic lesions. IMPRESSIONS: 1. Minimal fatty infiltration of the liver. 2. Sigmoid diverticulosis without acute diverticulitis. 3. Artifact versus nonobstructing distal left ureteral vesicle junction stone.
== END | disposition home or self-care (01) ==
LOC: RADCTMAIN 07:55
PROVIDERS: ATTEND Family Medicine
DX: K57.30 Diverticulosis of large intestine without perforation or abscess without bleeding (principal); K76.0 Fatty (change of) liver, not elsewhere classified; R31.29 Other microscopic hematuria
CPT/HCPCS: 74176

== ENCOUNTER 2019-04-22 09:44 | Day surgery (SDC) | payer BC ==
[2019-04-17 15:16] VITALS: BMI 31.1
[~2019-04-22 09:44] MED LIST changes: -DEXAMETHASONE SOD PHOSPHATE 10 MG/ML 1 ML VIAL IV ONE; -HEPARIN SODIUM,PORCINE 5,000 UNIT/ML 1 ML VIAL SQ ONE; +LIDOCAINE 1% (10MG/ML) FOR IV START INTRADERMA PRN; -MIDAZOLAM 2 MG/2 ML VIAL IV PRN; -ONDANSETRON 4 MG/2 ML VIAL IVP ONE; -SCOPOLAMINE 1.5MG/72HR PATCH TRANSDERM ONE; -ceFAZolin 2 GM in SODIUM CHLORIDE 0.9% 100 ML IVPB ONE; -fentaNYL (PF) 50 MCG/ML 2 ML AMP IV PRN
[2019-04-22 10:01] VITALS: RESP 16; TEMP 98.2
[2019-04-22] MEDS ORDERED: PROPOFOL 10 MG/ML 20 ML VIAL IV ONE (10:46)
--- NOTE | 2019-04-22 11:25 | P.PCN ---
Date of Procedure: 04/22/19 Description of Procedure: Brief history: Patient is a pleasant scheduled for an elective upper endoscopy as well as colonoscopy as a part of evaluation of GERD, IBS and altered bowel function. The patient reports a history of reflux disease treated with PPI therapy. She also reports 3 years of loose bowel movements with associated urgency. Last colonoscopy 5 years ago per her recollection. Procedure performed: Esophagogastroduodenoscopy with biopsy. Colonoscopy with biopsy and polypectomy Estimated blood loss: Minimal. Preoperative diagnosis: GERD, IBS, altered bowel function, last colonoscopy 5 years ago Anesthesia: MAC Procedure: After informed consent was obtained from the patient was brought into the endoscopy unit and IV sedation was administered by anesthesia under continuous monitoring. Initially upper endoscopy was done. The Olympus GF 190 video endoscope was inserted into the mouth and esophagus intubated without any difficulty and was gradually advanced into the stomach and duodenum and carefully examined. The bulb and second part of the duodenum appeared normal, With biopsies taken to rule out celiac sprue. The scope was then withdrawn into the stomach adequately insufflated with air and upon careful examination the antrum and body, cardia and fundus appeared normal, Except for some mild scattered erythema in the antrum and body suggestive of mild gastritis with biopsies taken. The scope was then withdrawn into the esophagus. The GE junction was located at 37 cm to the incisors And appeared normal with biopsies taken in the setting of GERD. It appeared regular with no erythema erosions or ulcerations. Rest of the esophagus appeared normal. Patient tolerated the procedure well. At this time the patient continued to remain sedation. Initial digital rectal examination was normal. Olympus CF 190 video colonoscope was then inserted into the rectum and gradually advanced to the cecum without any difficulty. Careful examination was performed as the scope was gradually being withdrawn. The prep was excellent. The cecum, ascending colon, transverse colon, descending colon, sigmoid colon and rectum appeared normal, With biopsies taken of the right and left colon in the setting of diarrhea//altered bowel function. The terminal ileum was intubated and appeared normal with biopsies taken. A diminutive 2 mm hepatic flexure polyp was removed with cold forcep polypectomy. Retroflexion was performed in the rectum and no lesions were noted. Patient tolerated the procedure well. Impression: 1. Mild gastritis antrum and body, biopsied. Biopsies of the duodenum and GE junction. 2. Normal-appearing colon from rectum to cecum with normal-appearing terminal ileum and random biopsies taken of the right colon, left colon and terminal ileum. Diminutive 2 mm hepatic flexure polyp removed with cold forcep polyp ectomy. Recommendations: Findings of this examination were discussed with the patient as well as her . Okay to resume diet. Okay to resume medications. Await pathology from biopsies. Continue PPI therapy and antispasmodic as needed. Would recommend repeat colonoscopy in 7 years pending pathology from polypectomy.
[2019-04-22 11:46] VITALS: BP 152/85; PULSE 61
== END 2019-04-22 11:59 | disposition home or self-care (01) ==
LOC: ORWHC2ENDO 09:44
PROVIDERS: ATTEND Internal Medicine
DX: D12.3 Benign neoplasm of transverse colon (principal); K58.0 Irritable bowel syndrome with diarrhea; K29.50 Unspecified chronic gastritis without bleeding; K21.9 Gastro-esophageal reflux disease without esophagitis; I10 Essential (primary) hypertension; E78.5 Hyperlipidemia, unspecified; F32.9 Major depressive disorder, single episode, unspecified; Z88.2 Allergy status to sulfonamides; Z88.5 Allergy status to narcotic agent; Z79.899 Other long term (current) drug therapy; Z87.891 Personal history of nicotine dependence; Z90.49 Acquired absence of other specified parts of digestive tract; Z98.51 Tubal ligation status; Z98.890 Other specified postprocedural states
CPT/HCPCS: 88305; 45380; 43239; J2704

== ENCOUNTER → 2020-05-04 | Outpatient (CLI) | payer BC ==
--- NOTE | 2020-05-04 15:49 | XR ---
EXAMINATION TYPE: XR wrist complete LT DATE OF EXAM: 05/04/2020 COMPARISON: NONE HISTORY: Pain TECHNIQUE: Four views submitted. FINDINGS: The osseous structures are intact. The joint spaces are preserved and there is no acute fracture or dislocation. IMPRESSION: 1. No definite acute fracture or dislocation if symptoms persist, follow-up study in 7 to 10 days wo uld be suggested
== END ==
LOC: RADXRYALE 14:43
PROVIDERS: ATTEND Physician Assistant Medical
DX: M25.531 Pain in right wrist (principal)

== ENCOUNTER → 2020-06-02 | Outpatient (CLI) | payer BC ==
--- NOTE | 2020-06-08 11:12 | MM ---
Reason for exam: screening (asymptomatic). Last mammogram was performed 1 year and 11 months ago. History: Patient is postmenopausal and has history of other cancer at age 55. Benign right US cyst aspiration of the right breast, May 11, 2007. Benign US right guided mammotome of the right breast, May 11, 2007. Physical Findings: A clinical breast exam by your physician is recommended on an annual basis and results should be correlated with mammographic findings. MG Screening Mammo w CAD Bilateral CC and MLO view(s) were taken. Prior study comparison: June 28, 2018, bilateral MG screening mammo w CAD. April 06, 2017, bilateral MG screening mammo w CAD. There are scattered fibroglandular densities. Previous mammotome biopsy in the right breast. Focal asymmetry left upper outer quadrant, stable. ASSESSMENT: Benign, BI-RAD 2 RECOMMENDATION: Routine screening mammogram of both breasts in 1 year.
== END | disposition home or self-care (01) ==
LOC: RADMAMWWP 13:15
PROVIDERS: ATTEND Obstetrics & Gynecology
DX: Z12.31 Encounter for screening mammogram for malignant neoplasm of breast (principal); Z78.0 Asymptomatic menopausal state
CPT/HCPCS: 77067

== ENCOUNTER → 2021-04-12 | Outpatient (CLI) | payer BC ==
--- NOTE | 2021-04-12 09:44 | US ---
EXAMINATION TYPE: US abdomen complete DATE OF EXAM: 04/12/2021 COMPARISON: NONE CLINICAL HISTORY: R74.8. Abnormal labs, cholecystectomy, HTN EXAM MEASUREMENTS: Liver Length: 18.2 cm. Normal less than 15.5 cm. Gallbladder Wall: Surgically absent cm CBD: 0.3 cm Spleen: 9.9 x 4.5 cm Right Kidney: 10.1 x 5.2 x 5.0 cm Left Kidney: 9.8x 4.0 x 5.8 cm Pancreas: Tail obscured by overlying bowel gas Liver: Increased attenuation Gallbladder: Surgically absent Evidence for sonographic Kaufman's sign: No CBD: wnl Spleen: wnl Right Kidney: No hydronephrosis or masses seen Left Kidney: No hydronephrosis or masses seen Upper IVC: wnl Abd Aorta: wnl IMPRESSION: 1. Mild hepatomegaly.
[2021-04-12 14:50] LABS: Basophils # (A) 0.03 X 10*3/uL (0.00-0.10); Basophils % (A) 0.5 %; Eosinophils # (A) 0.07 X 10*3/uL (0.04-0.35); Eosinophils % (A) 1.3 %; HCT 42.9 % (37.2-46.3); HGB 13.5 g/dL (12.0-15.0); Immature Grans, Automated 0.2 %; Lymphocytes # (A) 2.05 X 10*3/uL (0.90-5.00); Lymphocytes % (A) 37.2 %; MCH 29.3 pg (27.0-32.0); MCHC 31.5 g/dL (32.0-37.0); MCV 93.1 fL (80.0-97.0); Mean Platelet Volume 9.9 fL (9.5-12.2); Monocytes # (A) 0.37 X 10*3/uL (0.20-1.00); Monocytes % (A) 6.7 %; NRBC Per 100 WBC 0 /100 WBCS (0.0-0.0); Neutrophils # (A) 2.98 X 10*3/uL (1.80-7.70); Neutrophils % (A) 54.1 %; Platelet Count 292 X 10*3/uL (140-440); RBC 4.61 X 10*6/uL (4.10-5.20); RDW 12.4 % (11.5-14.5); WBC 5.51 X 10*3/uL (4.50-10.00)
[2021-04-12 15:35] LABS: % Iron Saturation 33.55 (12.00-45.00); ALT 118 U/L (8-44); AST 72 U/L (13-35); African American GFR (CKD) 106.1 (60.0-200.0); Albumin 4.5 g/dL (3.8-4.9); Albumin/Globulin Ratio 1.88 (1.60-3.17); Alkaline Phosphatase 95 U/L (41-126); Blood Urea Nitrogen 11.9 mg/dL (9.0-27.0); Calcium 9.7 mg/dL (8.7-10.3); Carbon Dioxide 24.7 mmol/L (20.0-27.5); Chloride 101 mmol/L (96-109); Chol/HDL Ratio 4.34 Ratio; Globulin 2.4 g/dL (1.6-3.3); Glucose 102 mg/dL (70-110); Iron 116 ug/dL (50-170); LDL Cholesterol,Calculated 132.3 mg/dL (0.0-131.0); Non-African American GFR(CKD) 91.6 (60.0-200.0); Potassium 5.2 mmol/L (3.5-5.5); Sodium 139 mmol/L (135-145); Total Iron Binding Capacity 346 ug/dL (228-460); Total Protein 6.9 g/dL (6.2-8.2)
[2021-04-12 17:14] LABS: Protein, Total 6.8 g/dL (6.2-8.2)
[2021-04-12 18:02] LABS: Ceruloplasmin 26.3 mg/dL (20.0-60.0)
[2021-04-13 14:09] LABS: Albumin 4.03 g/dL (3.80-4.90); Gamma Globulin 0.84 g/dL (0.70-1.50)
== END | disposition home or self-care (01) ==
LOC: RADUSWWP 08:26
PROVIDERS: ATTEND Family Medicine
DX: R74.8 Abnormal levels of other serum enzymes (principal); R16.0 Hepatomegaly, not elsewhere classified; E78.5 Hyperlipidemia, unspecified
CPT/HCPCS: 76700; 80053; 80061; 82103; 82390; 82728; 83516; 83540; 83550; 84165; 85025; 86038; 86039

== ENCOUNTER → 2021-10-20 | Outpatient (CLI) | payer BC ==
--- NOTE | 2021-10-20 14:41 | XR ---
EXAM TYPE: LUMBAR SPINE X RAY SERIES COMPARISON: NONE HISTORY: Pain TECHNIQUE: 4 views are submitted. FINDINGS: Alignment is anatomic. The pedicles are intact. The transverse processes are intact. There is curv ature of the spine with diffuse osteopenia. Moderate to severe degenerative disc disease L4-5 and L5- S1 with facet arthropathy. Surgical clips overlying the right iliac bone. IMPRESSION: 1. Severe degenerative disc disease and facet arthropathy L4-5 and L5-S1 with suspected bilateral for aminal encroachment. Recommend follow-up MRI.
== END | disposition home or self-care (01) ==
LOC: RADXRYALE 14:10
PROVIDERS: ATTEND Physician Assistant Medical
DX: M54.50 Low back pain, unspecified (principal)
CPT/HCPCS: 72110

== ENCOUNTER → 2021-12-23 | Outpatient (CLI) | payer BC, MEDICARE ==
--- NOTE | 2021-12-24 10:54 | MR ---
EXAMINATION TYPE: MR lumbar spine wo con DATE OF EXAM: 12/23/2021 COMPARISON: None HISTORY: 66-year-old female M51.36, Low back pain due to fall. TECHNIQUE: Multiplanar, multisequence images of the lumbar spine were acquired without IV contrast. FINDINGS: There is heterogeneous marrow signal suggesting prominent red marrow hyperplasia. A superior endplate Schmorl's node and mild superior endplate deformity of T12 shows mild edema on sa gittal STIR. No retropulsion into the spinal canal. Otherwise, vertebral body heights are preserved. Facet arthropathy mid to lower lumbar spine. Degenerative trace grade 1 anterolisthesis L4-L5. Mild multilevel degenerative disc disease with desiccated and minimally bulging discs. Some ligamentu m flavum thickening at L4-L5. Conus medullaris is normal. At T12-L1, no canal or foraminal stenosis. At L1-L2, no canal or foraminal stenosis. At L2-L3, no canal or foraminal stenosis. L2-L4, minimal bulging disc. Facet degenerative change. No significant canal or foraminal stenosis. At L4-L5, hypertrophic facet arthropathy and ligamentum flavum thickening. Minimal bulging disc and t race grade 1 anterolisthesis. No significant spinal canal or neuroforaminal stenosis. At L5-S1, minimal bulging disc. Hypertrophic facet arthropathy, left greater than right. No significa nt spinal canal stenosis. Changes result in mild left neuroforaminal stenosis. Lateral disc osteophyt e complex may abut the extraforaminal left L5 nerve root. IMPRESSION: 1. Superior endplate Schmorl's node at T12 shows associated mild marrow edema. Correlate for a subacu te Schmorl's node injury. 2. Hypertrophic facet arthropathy mid to lower lumbar spine. Ligamentum flavum thickening at L4-L5. D egenerative grade 1 anterolisthesis L4-L5. 3. Mild multilevel degenerative disc disease. No large focal disc herniation or significant spinal ca nal stenosis. 4. At L5-S1, changes result in mild left neuroforaminal stenosis. However, a left lateral disc osteop hyte complex at this level may abut the extraforaminal left L5 nerve root. Clinically correlate.
== END | disposition home or self-care (01) ==
LOC: RADMRIMAIN 10:25
PROVIDERS: ATTEND Family Medicine
DX: M51.36 Other intervertebral disc degeneration, lumbar region (principal); M47.816 Spondylosis without myelopathy or radiculopathy, lumbar region; M43.16 Spondylolisthesis, lumbar region; M48.061 Spinal stenosis, lumbar region without neurogenic claudication; M25.78 Osteophyte, vertebrae
CPT/HCPCS: 72148

== ENCOUNTER → 2022-09-20 | Outpatient (CLI) | payer BC, MEDICARE ==
--- NOTE | 2022-09-21 07:30 | MM ---
Reason for Exam: Screening (asymptomatic). Last mammogram was performed 2 year(s) and 4 month(s) ago. Patient History: Menarche at age 12. First Full-Term at age 17. Postmenopausal. 05/11/2007, Benign Cyst Aspiration on the right side. 05/11/2007, Benign Core Biopsy on the right side. Risk Values: Norma 5 year model risk: 1.6%. NCI Lifetime model risk: 5.7%. Prior Study Comparison: 04/06/2017 Bilateral Screening Mammogram, [facility]. 06/28/2018 Bilateral Screening Mammogram, [facility]. 06/02/2020 Bilateral Screening Mammogram, [facility]. Tissue Density: There are scattered fibroglandular densities. Findings: Analyzed By CAD. There is no suspicious group of microcalcifications or new suspicious mass in either breast. Stable left intramammary lymph nodes. Biopsy clip within the right breast. Overall Assessment: Benign, BI-RAD 2 Management: Screening Mammogram of both breasts in 1 year. A clinical breast exam by your physician is recommended on an annual basis and results should be correlated with mammographic findings. Note on Norma scores and lifetime risk: 1. A Norma score greater than 3% is considered moderate risk. If this is the case, consider specialist referral to assess eligibility for a risk reducing agent. If overall lifetime risk for the development of breast cancer is 20% or higher, the patient may qualify for future screening with alternating mammogram and breast MRI. Electronically signed and approved by: Derrek Causey D.O.
== END | disposition home or self-care (01) ==
LOC: RADMAMWWP 13:11
PROVIDERS: ATTEND Obstetrics & Gynecology
DX: Z12.31 Encounter for screening mammogram for malignant neoplasm of breast (principal); Z78.0 Asymptomatic menopausal state
CPT/HCPCS: 77067

== ENCOUNTER → 2024-03-07 | Outpatient (CLI) | payer MEDICARE, BC ==
--- NOTE | 2024-03-07 15:30 | XR ---
EXAMINATION TYPE: XR forearm RT DATE OF EXAM: 03/07/2024 3:09 PM COMPARISON: None CLINICAL INDICATION: Female, 68 years old with history of [id number] FALL,RT ELBOW/FOREARM PAIN; [facility], pain TECHNIQUE: XR forearm RT; forearm was examined in AP and lateral projections. FINDINGS: No acute osseous pathology, soft tissue swelling or joint dislocations are seen. IMPRESSION: No evidence of acute fracture. [facility], , 03/07/2024 3:27 PM
--- NOTE | 2024-03-07 15:31 | XR ---
EXAMINATION TYPE: XR elbow complete RT DATE OF EXAM: 03/07/2024 3:09 PM COMPARISON: None CLINICAL INDICATION: Female, 68 years old with history of [id number] FALL,RT ELBOW/FOREARM PAIN; [facility], pain TECHNIQUE: XR elbow complete RT; elbow was examined in AP, lateral, and oblique projections. FINDINGS: No evidence of any acute osseous pathology, joint dislocation, or soft tissue swelling is n oted. No evidence of joint effusion is present. IMPRESSION: No evidence of acute fracture. [facility], , 03/07/2024 3:28 PM
== END | disposition home or self-care (01) ==
LOC: RADXRYALE 14:51
PROVIDERS: ATTEND Physician Assistant
DX: M25.521 Pain in right elbow (principal); M79.631 Pain in right forearm; W00.0XXA Fall on same level due to ice and snow, initial encounter

== ENCOUNTER → 2024-03-14 | Outpatient (CLI) | payer MEDICARE, BC ==
--- NOTE | 2024-03-14 09:23 | XR ---
EXAMINATION TYPE: XR forearm RT DATE OF EXAM: 03/14/2024 9:02 AM COMPARISON: 03/07/2024 CLINICAL INDICATION: Female, 68 years old with history of [id number] RT FOREARM PAIN,PREV INJURY; willa GONZALES in TECHNIQUE: XR forearm RT; forearm was examined in AP and lateral projections. FINDINGS/IMPRESSION: New bony fragment off the lateral epicondyle of the humerus. Further evaluation with CT imaging shoul d be considered to rule out avulsion fracture. [facility], , 03/14/2024 9:21 AM
== END | disposition home or self-care (01) ==
LOC: RADXRYALE 08:44
PROVIDERS: ATTEND Family Medicine
DX: S59.911A Unspecified injury of right forearm, initial encounter (principal); X58.XXXA Exposure to other specified factors, initial encounter